=== PATIENT | female | born 1995 | race Caucasian/White ===

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

== ENCOUNTER → 2017-01-14 | Outpatient (CLI) | payer OTHER ==
[~2017-01-14] MED LIST changes: -AMPH1TAB58 PO; +ASPI325T45 PO; +FLUT0.15 NAE; +GUAN1TAB PO; +LITH1TAB PO; -MELA1TAB5 PO; +MELA3TAB PO; +MULT-506 PO; +OLAN10TA11 PO; +PRED20TA2 PO; -QUET200T2 PO; -QUET400T PO; -SERT-234 PO
== END | disposition home or self-care (01) ==
LOC: C.PATH 08:55
PROVIDERS: ATTEND Plastic Surgery
DX: R22.0 Localized swelling, mass and lump, head (principal)

== ENCOUNTER → 2017-03-10 | Outpatient (CLI) | payer OTHER ==
[~2017-03-10] MED LIST changes: -BENZ-89 PO; +CGN1 PO
[2017-03-10 12:20] LABS: BASO % 0.3 %; BASO ABS # 0.02 K/uL (0-0.2); COMPLETE YES; EOS % 2.7 %; HEMATOCRIT 41.6 % (37-47); IG% 0.1 %; LYMPH % 41.9 %; LYMPH ABS # 3.11 K/uL (1.2-3.4); MEAN CORPUSCULAR HEMOGLOBIN 27.7 pg (25-34); MEAN CORPUSCULAR HGB CONC 32.9 g/dl (32-36); MEAN PLATELET VOLUME 10.2 fL (7.4-10.4); PLATELET COUNT 332 K/uL (130-400); RED BLOOD COUNT 4.95 M/uL (4.2-5.4); WHITE BLOOD COUNT 7.43 K/uL (4.8-10.8)
[2017-03-10 12:58] LABS: ESTIMATED AVERAGE GLUCOSE 94 mg/dl
[2017-03-10 13:04] LABS: ALT/SGPT 34 U/L (12-78); AST/SGOT 20 U/L (15-37); BLOOD UREA NITROGEN 10 mg/dl (7-18); BUN/CREATININE RATIO 15.2 (10-20); CALCIUM 9.7 mg/dl (8.5-10.1); CARBON DIOXIDE 24 mmol/L (21-32); CHLORIDE 108 mmol/L (98-107); CREATININE 0.68 mg/dl (0.60-1.20); GLUCOSE 80 mg/dl (70-99); HDL CHOLESTEROL 65 mg/dl; SODIUM 140 mmol/L (136-145)
[2017-03-10 13:13] LABS: ALB/GLOB RATIO 0.9 (0.9-2); ALKALINE PHOSPHATASE 177 U/L (45-117); CHOLESTEROL 157 mg/dl (0-200); CHOLESTEROL/HDL RATIO 2.4; LDL CHOLESTEROL CALCULATED 83 mg/dl; TRIGLYCERIDES 44 mg/dl (0-150); VERY LOW DENSITY LIPOPROT CALC 9 mg/dl
[2017-03-10 13:24] LABS: HA1C FLAG Peak Unknown (Normal)
--- NOTE | 2017-03-15 10:54 | CODING QUERY MEDICAL NECESSITY ---
SUPPORTING DIAGNOSIS NEEDED A supporting diagnosis is required for the test/procedure performed on this patient in order for us to be reimbursed by the patient's insurance. Please provide a supporting diagnosis for the following test/procedure listed below next to the test name along with your signature. *If there is no additional diagnosis for this patient that would support the following test/procedure please document that below next to the test/procedure. Test(s)/Procedure(s) that require a supporting diagnosis: * HEMOGLOBIN A1C DIAGNOSIS: Provider Signature: Date: Thank you Sandie Martin [employer] Information [employer] Once completed, please kindly fax back to [phone] For questions please call [phone]
== END | disposition home or self-care (01) ==
LOC: C.LAB1850 11:23
PROVIDERS: ATTEND Physician Assistant
DX: Z51.81 Encounter for therapeutic drug level monitoring (principal); Z79.899 Other long term (current) drug therapy

== ENCOUNTER 2017-04-11 10:58 | Emergency (ER) | payer BC, OTHER ==
[~2017-04-11] VITALS: Ht 157.5 cm; Wt 84.3 kg
[~2017-04-11 10:58] MED LIST changes: -ASPI325T45 PO; -PRED20TA2 PO
[2017-04-11 11:04] VITALS: TEMP 36.7; Ht 157.5 cm; Wt 84.3 kg
[2017-04-11] MEDS ORDERED: GUAN1TAB PO (11:19)
[2017-04-11] MEDS ORDERED: ASPI325T45 PO (11:19)
[2017-04-11] MEDS ORDERED: DiphenhydrAMINE HCL 50 MG/ML VIAL IM STA (11:22)
[2017-04-11] MEDS ORDERED: PRED20TA2 PO (11:40)
--- NOTE | 2017-04-11 11:43 | EMERGENCY ROOM VISIT NOTE ---
ED Visit Note First contact with patient: 11:11 CHIEF COMPLAINT: Rash HISTORY OF PRESENT ILLNESS: This 22-year-old female patient presents to the emergency department ambulatory, with her father, complaining of a rash on bilateral arms, legs, back, neck, which started approximately one week ago. The patient states 1 week ago, she thought she had received bug bites on the back of both of her arms. The patient states the rash and itchiness did improve after a few days, however returned last night and seemed to be worse. The patient reports worsening hives, worse in her upper extremities, but also present on her lower extremities and torso. The patient denies fever, chills, nausea, trouble breathing, chest pain, or loss of appetite. They deny any URI symptoms. The patient has tried no medications or creams. The patient states the rash is very itchy and rates the discomfort as 5/10. No change in food, soap, detergents, or other environmental factors. No new medications, but the patient states she did recently increase the dose of her Tenex from 0.5 mg to 1 mg approximately 2 weeks ago. No weakness or numbness. REVIEW OF SYSTEMS: A 6 system review of systems was completed with positives and pertinent negatives listed in the HPI. ALLERGIES: Codeine, haloperidol, lithium, but has a limp, lamotrigine, risperidone, aripiprazole MEDICATIONS: Aspirin, Cogentin, Flonase, Tenex, Lactaid, lithium carbonate, melatonin, multivitamin, Zyprexa PMH: Seasonal allergies, bipolar disorder SOCIAL HISTORY: The patient lives locally with family. 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 She denies drug, alcohol, tobacco use. PHYSICAL EXAM: Vital Signs: Reviewed Nurse's notes, vital signs stable. GENERAL: This is a 22-year-old female, in no acute distress, well-developed, well-nourished. SKIN: Urticaria noted on bilateral upper extremities, lower extremities, the lower part of the patient's back, and mildly on the neck. Capillary refill less than 2 seconds. HEAD: Normocephalic atraumatic. EARS: External auditory canals clear, tympanic membranes pearly coffey without erythema or effusion bilaterally. EYES: Pupils equal round and reactive to light and accommodation. Conjunctivae without injection, sclerae without icterus. Extraocular movements intact. NOSE: Patent, turbinates without inflammation or discharge. No sinus tenderness. MOUTH: Mucous membranes moist. Tonsils are not enlarged. Pharynx without erythema or exudate. Uvula midline. Airway patent. Tongue does not deviate. NECK: Supple without nuchal rigidity. No lymphadenopathy. No thyromegaly. Cervical spine is nontender. No JVD. HEART: RRR. No murmurs, gallops, rubs. Normal S1, S2 without S3 or S4. LUNGS: CTA bilaterally. No rhonchi, wheezing, or rales on auscultation. EMERGENCY DEPARTMENT COURSE: Patient was seen and evaluated as above. She was given a dose of 50 mg Benadryl IM. The patient did note minimal improvement in her itchiness. I discussed discharge instructions with patient and her father at bedside. They are in agreement with treatment plan at this time. Pt. was discharged home in good condition. DIFFERENTIAL DIAGNOSIS: Urticaria due to medication or environmental factors, allergic reaction, anaphylaxis, dermatitis, vasculitis, and others. DIAGNOSIS: Urticaria DISCHARGE INSTRUCTIONS: You have been prescribed Prednisone. This is a steroid which will help decrease your inflammation, redness, and itch. Take this medicine as prescribed. Take the ENTIRE 6 day course. It is best to take steroids early in the morning as PM dosing can affect your sleeping patterns. Use Benadryl OTC to help with itchiness, redness, and to block the histamine reaction. Take 25-50 mg every 4-6 hours until urticaria improves. Consider taking ranitidine, or Zantac, as directed, in addition to these other medications. You can get this [id number]. This will also help to block the histamine reaction related to the urticaria. Please follow up in 1-2 days with your PCP for further evaluation and management. You may need a referral to an sheet metal shop foreman for testing related to urticaria, as we have not been able to identify any obvious causes. You should also follow up with your prescriber for Tenax. It is possible that your increase of dose could have precipitated the reaction. Return to the emergency department for worsening symptoms, including itchiness, redness, difficulty breathing, chest pain, facial or lip swelling, or hives on the face. Problem List Medical Problems: (1) ADHD (attention deficit hyperactivity disorder) Status: Chronic (2) Hemangioma Status: Chronic (3) OCD (obsessive compulsive disorder) Status: Chronic (4) Paranoid schizophrenia Status: Chronic Current/Historical Medications Scheduled Benztropine Mesylate (Cogentin), 1 MG PO BID Fluticasone Propionate (Nasal) (Flonase Allergy Relief), 2 SPRAYS LAUREN QPM Guanfacine Hcl (Tenex), 0.5 MG PO BID Guanfacine Hcl (Tenex), 1 MG PO DAILY Lactase (Lactaid), 3,000 UNITS PO TID [place] Carbonate Er (Lithobid Ext Rel), 900 MG PO QPM Multivitamin (Multivitamin), 1 TAB PO DAILY Olanzapine (Zyprexa), 10 MG PO QPM Prednisone (Prednisone Tab), 0 PO DAILY Scheduled PRN Aspirin (Aspirin), 325 MG PO UD PRN for Pain Melatonin (Melatonin), 3 MG PO HS PRN for Sleep Allergies Coded Allergies: Risperidone (Unverified Allergy, Severe, TONGUE GOES BACK HER THROAT, 04/11) Haloperidol (Unverified Allergy, Intermediate, LOCK JAW, 04/11/17) Lamotrigine (Unverified Allergy, Intermediate, HIVES, 04/11/17) Aripiprazole (Unverified Allergy, Mild, TONGUE SWELLS, 04/11/17) WORKS OK WITH COGENTIN Codeine (Unverified Allergy, Mild, VOMITTING, 04/11/17) Midazolam (Unverified Allergy, Mild, VOMITTING, 04/11/17) Vital Signs Date Time Temp Pulse Resp B/P (MAP) Pulse Ox O2 Delivery O2 Flow Rate FiO2 04/11/17 12:08 94 18 125/69 98 04/11/17 11:04 36.7 85 17 107/64 97 Room Air Medications Administered Medications (Trade) Dose Ordered Sig/Lissett Route Start Time Stop Time Status Last Admin Dose Admin Diphenhydramine HCl (Benadryl Inj) 50 mg NOW STAT IM 04/11/17 11:22 04/11/17 11:27 DC 04/11/17 11:46 50 MG Departure Information Impression Primary Impression: Urticaria Dispostion Home / Self-Care Condition GOOD Prescriptions Prednisone (Prednisone Tab) 20 Mg Tab 0 PO DAILY, #9 TAB 2 TABS DAILY FOR 3 DAYS, THEN 1 TAB DAILY FOR 3 DAYS. Prov: Julienne Dominguez, NIMESH 04/11/17 Referrals Jenae Fajardo M.D. (PCP) Patient Instructions ED Urticaria, [facility] Additional Instructions You have been prescribed Prednisone. This is a steroid which will help decrease your inflammation, redness, and itch. Take this medicine as prescribed. Take the ENTIRE 6 day course. It is best to take steroids early in the morning as PM dosing can affect your sleeping patterns. Use Benadryl OTC to help with itchiness, redness, and to block the histamine reaction. Take 25-50 mg every 4-6 hours until urticaria improves. Consider taking ranitidine, or Zantac, as directed, in addition to these other medications. You can get this [id number]. This will also help to block the histamine reaction related to the urticaria. You may use OTC calamine lotion or other anti-itch cream/spray to help with itchiness. Please follow up in 1-2 days with your PCP for further evaluation and management. You may need a referral to an sheet metal shop foreman for testing related to urticaria, as we have not been able to identify any obvious causes. You should also follow up with your prescriber for Tenax. It is possible that your increase of dose could have precipitated the reaction. Return to the emergency department for worsening symptoms, including itchiness, redness, difficulty breathing, chest pain, facial or lip swelling, or hives on the face.
[2017-04-11 12:08] VITALS: BP 125/69; PULSE 94; O2SAT 98
== END 2017-04-11 12:10 | disposition home or self-care (01) ==
LOC: C.EDB 10:59 → C.EDD 12:10
DX: L50.9 Urticaria, unspecified (principal); F31.9 Bipolar disorder, unspecified; J30.2 Other seasonal allergic rhinitis; F90.9 Attention-deficit hyperactivity disorder, unspecified type; D18.00 Hemangioma unspecified site; F42.9 Obsessive-compulsive disorder, unspecified; F20.0 Paranoid schizophrenia

== ENCOUNTER → 2017-08-17 | Outpatient (CLI) | payer BC, OTHER ==
[~2017-08-17] MED LIST changes: +ASPECOTC PO; +BENZ-89 PO; -CGN1 PO; +PRED20TA2 PO
== END | disposition home or self-care (01) ==
LOC: C.PATHSPEC 15:55
PROVIDERS: ATTEND Dentist Oral and Maxillofacial Pathology
DX: D17.0 Benign lipomatous neoplasm of skin and subcutaneous tissue of head, face and neck (principal)

== ENCOUNTER 2023-06-07 13:20 | Inpatient (IN) ==
[2023-06-07 13:29] VITALS: O2SAT 98
--- NOTE | 2023-06-07 13:29 | ED Triage Note ---
Date of Service June 07, 2023 History of Present Illness This patient was briefly evaluated while in triage. An abbreviated physical exam was performed. Patient prefers the name Jim. This patient is a 28-year-old patient who presents to the ED for evaluation of suicidal and homicidal thoughts. Here with mother. No plan at the present time. Symptoms ongoing for 1.5 weeks. Hears voices as well. On depo. No menstrual cycle in years. Physical Exam GENERAL: 28 year old patient. In no acute distress. SKIN: No lesions or rashes. HEART: Regular rate and rhythm. LUNGS: Clear to auscultation. NEURO: Alert and oriented. No deficits. MUSCULOSKELETAL: No deformities to inspection of the extremities. Initial orders for labs and / or imaging were placed
--- NOTE | 2023-06-07 13:56 | Emergency Department Note ---
Impression & Plan Schizophrenia admit ED Provider Note Diagnosis: Schizophrenia Disposition: Admission CHIEF COMPLAINT: HPI: Patient is a 28-year-old with history of schizophrenia presenting with hearing voices and suicidal homicidal. Patient states that they have been hearing voic es and they have been telling them to kill their mother and father and if they go through with that the voices will stop. Patient has been feeling suicidal due to the thoughts of wanting to hurt mother and father. Patient has not acted on any of these thoughts. PAST MEDICAL HISTORY: See Below PAST SURGICAL HISTORY: See Below SOCIAL HISTORY: See Below HOME MEDICATIONS: See Below ALLERGIES: See Below VITALS: See Below PHYSICAL EXAMINATION: GENERAL: Well appearing, well nourished, NAD, non-toxic. EYE EXAM: Normal conjunctiva. OROPHARYNX: Moist mucus membranes. Grossly normal dentition. NECK: Supple, LUNGS: Clear to auscultation. Normal chest wall mechanics. HEART: NSR ABDOMEN: Abdomen soft, non-tender, normo-active bowel sounds, no masses, no rebound or guarding BACK: No CVA TTP. SKIN: No rashes and no bruising. UPPER EXTREMITIES: Upper extremities are grossly normal LOWER EXTREMITIES: Grossly normal, no edema. NEURO EXAM: A&O x3,, normal speech, moves all 4 extremities PSYCH: Cooperative, auditory hallucinations, suicidal and homicidal MEDICAL DECISION MAKING: Reviewed external documents: Reviewed family practice note 12/19/2021 History obtained from: Patient, patient's mother ER Course: Patient with history of schizophrenia presenting with complaint of homicidal suicidal ideations. Patient states they are hearing voices that are telling him to kill their mother and father and that the voices will go away if they perform this act. Patient states that they are feeling suicidal due to having these homicidal thoughts. Patient does not have a plan for either the homicidal or suicidal ideations. Patient is medically cleared for inpatient psychiatric treatment. Labs (independently interpreted) are significant for: No electrolyte abnormalities lithium therapeutic Consultants: Mental health counselor Patient admitted to psychiatric team Dr. Null Triage Nursing notes reviewed and agree them. Vital Signs: reviewed and remarkable for: no significant abnormalities Past Med/Surg History Medical History ADHD Anxiety Bruise of breast alcohol spectrum disorder GERD (gastroesophageal reflux disease) History of reactive attachment disorder OCD (obsessive compulsive disorder) Paranoid schizophrenia Surgical History History of eye surgery History of hemangioma excision Hx of wisdom tooth extraction Status post excision of lipoma Family History Other Family history not known due to adoption Social History Smoking Status: Never smoker Second Hand Exposure: Yes (roommates smoke); Do You Dip or Chew Tobacco: No; Hx Alcohol Use: No Hx Substance Use: No Preferred Language: [place] Communication Ability: Effective 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: No Beliefs That Will Affect Care: None marital status: Single Current Living Situation: Other Current Living Situation Comment: has 2 roommates; [facility] current occupational status: employed current occupation: [employer] Feels Safe at Home: Yes Childhood Exposure to Second-Hand Smoke: No Physical Activity Frequency: 3-4 Times per Week Seatbelt Use: always Gender Identity: Transgender Male Assistive Devices: Glasses Allergies Allergies Allergy/AdvReac Type Severity Reaction Status Date / Time risperidone Allergy Severe TONGUE Verified 08/18/22 16:56 GOES BACK HER THROAT haloperidol Allergy Intermediate LOCK JAW Verified 08/18/22 16:56 lamotrigine Allergy Intermediate HIVES Verified 08/18/22 16:56 aripiprazole Allergy Mild TONGUE Verified 08/18/22 16:56 SWELLS codeine Allergy Mild VOMITTING Verified 08/18/22 16:56 midazolam Allergy Mild VOMITTING Verified 08/18/22 16:56 Home Meds Home Medications Medication Instructions Recorded Confirmed benztropine 1 mg tablet 1 mg PO BID 10/10/18 08/18/22 fluticasone propionate 50 1 spray intranasal HS 10/10/18 08/18/22 mcg/actuation nasal spray,suspension (Flonase Allergy Relief) guanfacine 2 mg tablet 1 mg PO BID 10/10/18 08/18/22 lactase 3,000 unit tablet (Lactaid) 3,000 unit PO AC PRN Lactose 10/10/18 08/18/22 Intolerance multivitamin (Tab-A-Tomasz tablet) 1 tab PO QAM 10/10/18 08/18/22 pimozide 1 mg tablet 1 mg PO BID 03/25/20 08/18/22 clomipramine 25 mg capsule 25 mg PO PM 10/15/20 08/18/22 clomipramine 75 mg capsule 75 mg PO PM 10/15/20 04/16/22 lithium carbonate 450 mg 900 mg PO BID 04/24/21 08/18/22 tablet,extended release olanzapine 15 mg-samidorphan 10 mg 1 tab PO DAILY 12/18/21 08/18/22 tablet (Lybalvi) testosterone transdermal 1XD 12/18/21 08/18/22 guanfacine 1 mg tablet 1 mg BID 06/07/23 06/07/23 olanzapine 20 mg-samidorphan 10 mg 1 tab PO HS 06/07/23 06/07/23 tablet (Lybalvi) Previous Rx's Medication Instructions Recorded vitamins A and D 1 cap PO DAILY #100 caps 04/21/21 clindamycin phosphate 1 % topical 1 applic topical HS #30 grams 11/04/21 gel lansoprazole 30 mg capsule,delayed See Rx Instructions .Route 05/06/23 release .COMPLEX #60 caps medroxyprogesterone 150 mg/mL 150 mg IM .COMPLEX #1 mL 05/10/23 intramuscular syringe Results & Data (ED) Vital Signs Vital Signs - 24 hr 06/07/23 13:27 06/07/23 15:52 06/07/23 17:00 Temperature 36.6 C Temperature Source Temporal Artery Scan Pulse Rate 102 H Respiratory Rate 20 16 19 Respiratory Effort / Characteristics Non-Labored Respiratory Depth Normal Blood Pressure 146/96 H Blood Pressure Mean 112 Pulse Oximetry 98 Oxygen Delivery Method Room Air Sepsis Recent Fever Within 48 Hours No Sepsis New/Unexplained Change in Mental Status No Sepsis Action Taken by Nursing No Action Required Laboratory Data 06/07/23 13:55 06/07/23 13:55 Lab Results 06/07/23 06/07/23 06/07/23 Range/Units 13:31 13:31 13:55 WBC 13.11 H (4.8-10.8) K/ul RBC 4.56 (4.20-5.40) M/uL Hgb 12.7 (12.0-16.0) g/dl Hct 38.7 (37.0-47.0) % MCV 84.9 (80.0-100.0) fL MCH 27.9 (25.0-34.0) pg MCHC 32.8 (32.0-36.0) g/dL RDW Std Deviation 44.0 (36.4-46.3) fL RDW Coeff of Padmini 14.3 (11.5-14.5) % Plt Count 514 H (130-400) K/uL MPV 10.2 (9.4-12.4) fL Immature Gran % (Auto) 0.3 % Neut % (Auto) 54.0 % Lymph % (Auto) 39.1 % Walker % (Auto) 3.8 % Eos % (Auto) 2.4 % Baso % (Auto) 0.4 % Neut # (Auto) 7.08 H (1.40-6.50) K/uL Lymph # (Auto) 5.13 H (1.20-3.40) K/uL Walker # (Auto) 0.50 (0.11-0.59) K/uL Eos # (Auto) 0.31 (0.00-0.50) K/uL Baso # (Auto) 0.05 (0.00-0.20) K/uL Immature Gran # (Auto) 0.04 (0.01-0.20) K/uL Sodium (136-145) mmol/L Potassium (3.5-5.1) mmol/L Chloride (98-107) mmol/L Carbon Dioxide (21-32) mmol/L Anion Gap (3-11) BUN (6-23) mg/dl Creatinine (0.6-1.2) mg/dl Est Cr Clr Drug Dosing ml/min Est GFR ( Amer) ml/min Est GFR (Non-Af Amer) ml/min BUN/Creatinine Ratio (10-20) Glucose (70-99(Fasting)) mg/dl Calcium (8.6-10.3) mg/dl Total Bilirubin (0.2-1.0) mg/dl AST (13-39) U/L ALT (7-52) U/L Alkaline Phosphatase (34-104) U/L Total Protein (6.0-8.3) gm/dl Albumin (3.4-5.0) gm/dl Globulin (2.5-4.0) gm/dl Albumin/Globulin Ratio (0.9-2) TSH (0.300-4.500) uIu/ml Free T4 (0.61-1.60) ng/dl HCG, Qual (Negative) Urine Color Yellow Urine Appearance Clear (Clear) Urine pH 7.5 (4.5-7.5) Ur Specific [place] 1.004 (1.000-1.030) Urine Protein Negative (Negative) Urine Glucose (UA) Negative (Negative) Urine Ketones Negative (Negative) Urine Blood Negative (Negative) Urine Nitrite Negative (Negative) Urine Bilirubin Negative (Negative) Urine Urobilinogen Negative (Negative) Ur Leukocyte Esterase 1+ H (Negative) Urine WBC (Auto) 0 (0-5) /hpf Urine RBC (Auto) 0-4 (0-4) /hpf U Hyaline Cast (Auto) 0 (0-5) /lpf U Epithel Cells (Auto) 5-10 H (0-5) /lpf Urine Bacteria (Auto) Negative (Negative) Salicylates (3.0-30) mg/dl Urine Opiates Screen Neg (Neg) Ur Methadone, Qual Neg (Neg) Acetaminophen (10-30) ug/ml Urine Barbiturates Neg (Neg) Ur Phencyclidine (PCP) Neg (Neg) U Amphetamin/Meth Scrn Neg (Neg) MDMA (Ecstasy) Screen Neg (Neg) U Benzodiazepines Scrn Neg (Neg) [place] (0.6-1.2) mmol/L Ur Cocaine Metabolite Neg (Neg) U Marijuana (THC) Screen Neg (Neg) Ethyl Alcohol mg/dL (<10.0) mg/dl SARS-CoV-2, RNA, NAAT (NEGATIVE) 06/07/23 06/07/23 06/07/23 Range/Units 13:55 13:55 13:55 WBC (4.8-10.8) K/ul RBC (4.20-5.40) M/uL Hgb (12.0-16.0) g/dl Hct (37.0-47.0) % MCV (80.0-100.0) fL MCH (25.0-34.0) pg MCHC (32.0-36.0) g/dL RDW Std Deviation (36.4-46.3) fL RDW Coeff of Padmini (11.5-14.5) % Plt Count (130-400) K/uL MPV (9.4-12.4) fL Immature Gran % (Auto) % Neut % (Auto) % Lymph % (Auto) % Walker % (Auto) % Eos % (Auto) % Baso % (Auto) % Neut # (Auto) (1.40-6.50) K/uL Lymph # (Auto) (1.20-3.40) K/uL [place] # (Auto) (0.11-0.59) K/uL Eos # (Auto) (0.00-0.50) K/uL Baso # (Auto) (0.00-0.20) K/uL Immature Gran # (Auto) (0.01-0.20) K/uL Sodium 139 (136-145) mmol/L Potassium 3.8 (3.5-5.1) mmol/L Chloride 110 H (98-107) mmol/L Carbon Dioxide 22 (21-32) mmol/L Anion Gap 7 (3-11) BUN 9 (6-23) mg/dl Creatinine 0.90 (0.6-1.2) mg/dl Est Cr Clr Drug Dosing 114.4 ml/min Est GFR ( Amer) 102.3 ml/min Est GFR (Non-Af Amer) 88.2 ml/min BUN/Creatinine Ratio 10.0 (10-20) Glucose 102 H (70-99(Fasting)) mg/dl Calcium 9.7 (8.6-10.3) mg/dl Total Bilirubin 0.2 (0.2-1.0) mg/dl AST 37 (13-39) U/L ALT 73 H (7-52) U/L Alkaline Phosphatase 154 H (34-104) U/L Total Protein 7.8 (6.0-8.3) gm/dl Albumin 4.5 (3.4-5.0) gm/dl Globulin 3.3 (2.5-4.0) gm/dl Albumin/Globulin Ratio 1.4 (0.9-2) TSH 5.379 H (0.300-4.500) uIu/ml Free T4 0.58 L (0.61-1.60) ng/dl HCG, Qual (Negative) Urine Color Urine Appearance (Clear) Urine pH (4.5-7.5) Ur Specific [place] (1.000-1.030) Urine Protein (Negative) Urine Glucose (UA) (Negative) Urine Ketones (Negative) Urine Blood (Negative) Urine Nitrite (Negative) Urine Bilirubin (Negative) Urine Urobilinogen (Negative) Ur Leukocyte Esterase (Negative) Urine WBC (Auto) (0-5) /hpf Urine RBC (Auto) (0-4) /hpf U Hyaline Cast (Auto) (0-5) /lpf U Epithel Cells (Auto) (0-5) /lpf Urine Bacteria (Auto) (Negative) Salicylates < 3.0 L (3.0-30) mg/dl Urine Opiates Screen (Neg) Ur Methadone, Qual (Neg) Acetaminophen < 3 L (10-30) ug/ml Urine Barbiturates (Neg) Ur Phencyclidine (PCP) (Neg) U Amphetamin/Meth Scrn (Neg) MDMA (Ecstasy) Screen (Neg) U Benzodiazepines Scrn (Neg) [place] 1.2 (0.6-1.2) mmol/L Ur Cocaine Metabolite (Neg) U Marijuana (THC) Screen (Neg) Ethyl Alcohol mg/dL < 10.0 (<10.0) mg/dl SARS-CoV-2, RNA, NAAT (NEGATIVE) 06/07/23 06/07/23 Range/Units 13:55 Unknown WBC (4.8-10.8) K/ul RBC (4.20-5.40) M/uL Hgb (12.0-16.0) g/dl Hct (37.0-47.0) % MCV (80.0-100.0) fL MCH (25.0-34.0) pg MCHC (32.0-36.0) g/dL RDW Std Deviation (36.4-46.3) fL RDW Coeff of Padmini (11.5-14.5) % Plt Count (130-400) K/uL MPV (9.4-12.4) fL Immature Gran % (Auto) % Neut % (Auto) % Lymph % (Auto) % Walker % (Auto) % Eos % (Auto) % Baso % (Auto) % Neut # (Auto) (1.40-6.50) K/uL Lymph # (Auto) (1.20-3.40) K/uL [place] # (Auto) (0.11-0.59) K/uL Eos # (Auto) (0.00-0.50) K/uL Baso # (Auto) (0.00-0.20) K/uL Immature Gran # (Auto) (0.01-0.20) K/uL Sodium (136-145) mmol/L Potassium (3.5-5.1) mmol/L Chloride (98-107) mmol/L Carbon Dioxide (21-32) mmol/L Anion Gap (3-11) BUN (6-23) mg/dl Creatinine (0.6-1.2) mg/dl Est Cr Clr Drug Dosing ml/min Est GFR ( Amer) ml/min Est GFR (Non-Af Amer) ml/min BUN/Creatinine Ratio (10-20) Glucose (70-99(Fasting)) mg/dl Calcium (8.6-10.3) mg/dl Total Bilirubin (0.2-1.0) mg/dl AST (13-39) U/L ALT (7-52) U/L Alkaline Phosphatase (34-104) U/L Total Protein (6.0-8.3) gm/dl Albumin (3.4-5.0) gm/dl Globulin (2.5-4.0) gm/dl Albumin/Globulin Ratio (0.9-2) TSH (0.300-4.500) uIu/ml Free T4 (0.61-1.60) ng/dl HCG, Qual Negative (Negative) Urine Color Urine Appearance (Clear) Urine pH (4.5-7.5) Ur Specific [place] (1.000-1.030) Urine Protein (Negative) Urine Glucose (UA) (Negative) Urine Ketones (Negative) Urine Blood (Negative) Urine Nitrite (Negative) Urine Bilirubin (Negative) Urine Urobilinogen (Negative) Ur Leukocyte Esterase (Negative) Urine WBC (Auto) (0-5) /hpf Urine RBC (Auto) (0-4) /hpf U Hyaline Cast (Auto) (0-5) /lpf U Epithel Cells (Auto) (0-5) /lpf Urine Bacteria (Auto) (Negative) Salicylates (3.0-30) mg/dl Urine Opiates Screen (Neg) Ur Methadone, Qual (Neg) Acetaminophen (10-30) ug/ml Urine Barbiturates (Neg) Ur Phencyclidine (PCP) (Neg) U Amphetamin/Meth Scrn (Neg) MDMA (Ecstasy) Screen (Neg) U Benzodiazepines Scrn (Neg) [place] (0.6-1.2) mmol/L Ur Cocaine Metabolite (Neg) U Marijuana (THC) Screen (Neg) Ethyl Alcohol mg/dL (<10.0) mg/dl SARS-CoV-2, RNA, NAAT NEGATIVE (NEGATIVE) Discharge Plan Visit Data Chief Complaint: Mental Health Evaluation Stated Complaint: SUICIDAL AND HOMOCIDAL THOUGHTS ED Provider: Anish Ontiveros Discharge Problem: Schizophrenia Forms Stand Alone Forms: [facility], Suicide Prevention Resources Prescriptions Prescriptions: No Action vitamins A and D Capsule 1 cap PO DAILY Qty: 100 3RF Rx Instructions: administer with a meal 10,000-400 unit oral capsule clindamycin phosphate 1 % gel 1 applic TOPICAL HS Qty: 30 2RF lansoprazole 30 mg capsule,delayed release(DR/EC) See Rx Instructions .ROUTE .COMPLEX Qty: 60 0RF Dose Instruction: take 1 capsule by mouth twice a day Rx Instructions: take 1 capsule by mouth twice a day clomipramine 75 mg capsule 75 mg PO PM clomipramine 25 mg capsule 25 mg PO PM Lybalvi 15-10 mg tablet 1 tab PO DAILY testosterone transdermal 1XD medroxyprogesterone 150 mg/mL syringe 150 mg IM .COMPLEX Qty: 1 0RF Rx Instructions: 150 mg IM : Inject 1 ml every [address] office[address] multivitamin [Tab-A-Tomasz] Tablet 1 tab PO QAM benztropine 1 mg Tablet 1 mg PO BID lactase [Lactaid] 3,000 unit Tablet 3,000 unit PO AC PRN (Reason: Lactose Intolerance) guanfacine 2 mg Tablet 1 mg PO BID fluticasone propionate [Flonase Allergy Relief] 50 mcg/actuation [place],Suspension 1 spray INTRANASAL HS pimozide 1 mg tablet 1 mg PO BID lithium carbonate 450 mg tablet extended release 900 mg PO BID guanfacine 1 mg tablet 1 mg BID Lybalvi 20-10 mg Tablet 1 tab PO HS Referrals Referrals: Thanh Dexter MD [Primary Care Provider] -
[2023-06-07 14:08] LABS: Appearance Urine Clear (Clear); Bilirubin Urine Negative (Negative); Blood Urine Negative (Negative); Color Urine Yellow; Glucose Urine UA Negative (Negative); Ketones Urine Negative (Negative); Leukocyte Esterase Urine 1+ (Negative); Nitrite Urine Negative (Negative); Protein Urine Negative (Negative); Specific Gravity Urine 1.004 (1.000-1.030); Urobilinogen Urine Negative (Negative); pH Urine 7.5 (4.5-7.5)
[2023-06-07 14:25] LABS: Amphetamines+Metham, Urine Neg (Neg); Barbiturates, Urine Neg (Neg); Benzodiazepine, Urine Neg (Neg); Cocaine, Urine Neg (Neg); MDMA (Ecstacy), Urine Neg (Neg); Methadone, Urine Neg (Neg); Opiate, Urine Neg (Neg); Phencyclidine, Urine Neg (Neg)
[2023-06-07 14:27] LABS: Hematocrit (blood only) 38.7 % (37.0-47.0); Hemoglobin 12.7 g/dl (12.0-16.0); Mean Corpuscular Hemoglobin 27.9 pg (25.0-34.0); Mean Corpuscular Hgb Conc 32.8 g/dL (32.0-36.0); Mean Corpuscular Volume 84.9 fL (80.0-100.0); Mean Platelet Volume 10.2 fL (9.4-12.4); Platelet Count 514 K/uL (130-400); RDW Coefficient of Variation 14.3 % (11.5-14.5); Red Blood Count 4.56 M/uL (4.20-5.40); White Blood Count 13.11 K/ul (4.8-10.8)
[2023-06-07 14:29] LABS: Bacteria Urine Automated Negative (Negative); Cast Urine Automated 0 /lpf (0-5); RBC Urine Automated 0-4 /hpf (0-4); WBC Urine Automated 0 /hpf (0-5)
[2023-06-07 14:48] LABS: Basophils # (auto) 0.05 K/uL (0.00-0.20); Basophils % (auto) 0.4 %; Eosinophils # (auto) 0.31 K/uL (0.00-0.50); Eosinophils % (auto) 2.4 %; Immature Granulocytes # (auto) 0.04 K/uL (0.01-0.20); Immature Granulocytes % (auto) 0.3 %; Lymphocytes # (auto) 5.13 K/uL (1.20-3.40); Lymphocytes % (auto) 39.1 %; Monocytes % (auto) 3.8 %; Neutrophils # (auto) 7.08 K/uL (1.40-6.50)
[2023-06-07 14:49] LABS: Albumin Globulin Ratio 1.4 (0.9-2); Albumin Level 4.5 gm/dl (3.4-5.0); Bilirubin,Total 0.2 mg/dl (0.2-1.0); Calcium 9.7 mg/dl (8.6-10.3); Creatinine Clr Calc Pharmacy 114.4 ml/min; Est GFR (African American) 102.3 ml/min; Est GFR (Non-African American) 88.2 ml/min; Globulin 3.3 gm/dl (2.5-4.0); Potassium 3.8 mmol/L (3.5-5.1); Total Protein 7.8 gm/dl (6.0-8.3)
[2023-06-07 14:50] LABS: Acetaminophen < 3 ug/ml (10-30); Lithium 1.2 mmol/L (0.6-1.2); Salicylate < 3.0 mg/dl (3.0-30)
[2023-06-07 14:52] LABS: Pregnancy Test, Serum Negative (Negative)
[2023-06-07 14:59] LABS: Thyroid Stimulating Hormone 5.379 uIu/ml (0.300-4.500)
[2023-06-07 15:34] LABS: T4 Free Thyroxine 0.58 ng/dl (0.61-1.60)
[2023-06-07] MEDS ORDERED: BISMUTH SUBSALICYLATE LIQD 236 ML PO PRN (17:07)
[2023-06-07] MEDS ORDERED: SODIUM CHLORIDE 0.65% NA SOLN 45 ML (OCEAN) PRN (17:07)
[2023-06-07] MEDS ORDERED: MAGNESIUM HYDROXIDE SUSP 30 ML UDC PO PRN (17:07)
[2023-06-07] MEDS ORDERED: ALUMINUM/MAGNESIUM SUSP 30 ML UDC PO PRN (17:07)
[2023-06-07] MEDS ORDERED: hydrOXYzine HCl 25 MG TAB PO PRN (17:07)
[2023-06-07] MEDS ORDERED: LACTASE 3000 UNIT TAB PO PRN (17:11)
[2023-06-07] MEDS ORDERED: CLOMIPRAMINE HCL 25 MG CAPSULE PO SCH (19:00)
[2023-06-07] MEDS: hydrOXYzine HCl 25 MG TAB PO PRN (19:01)
[2023-06-07] MEDS: LORazepam 1 MG TAB PO PRN (19:54)
[2023-06-07] MEDS: CLOMIPRAMINE 75 MG PO SCH (20:12)
[2023-06-07] MEDS: CLOMIPRAMINE HCL 25 MG CAPSULE PO SCH (20:13)
[2023-06-07] MEDS ORDERED: PANTOprazole 40 MG TAB PO SCH (21:00)
[2023-06-07] MEDS: guanFACINE HCL 1 MG TAB PO SCH (21:24)
[2023-06-07] MEDS: LANSOPRAZOLE 30 MG SOLTAB PO SCH (21:24)
[2023-06-07] MEDS: BENZTROPINE MESYLATE 1 MG TAB PO SCH (21:24)
[2023-06-07] MEDS: CLINDAMYCIN TOP SCH (21:24)
[2023-06-07] MEDS: LITHIUM CARBONATE 450 MG TABCR PO SCH (21:24)
[2023-06-07] MEDS: BENZOYL PEROXIDE TOP SCH (21:24)
[2023-06-07] MEDS: PIMOZIDE 1 MG PO SCH (21:25)
[2023-06-07] MEDS: FLUTICASONE PROPIONATE NA SPR 16 GM BTL SCH (21:26)
[2023-06-07] MEDS: OLANZAPINE SAMIDORPHAN PO SCH (21:27)
[2023-06-07] MEDS ORDERED: OLANZapine 20 MG TABLET PO SCH (22:00)
[2023-06-07] MEDS ORDERED: OLANZapine 10 MG TAB PO SCH (22:00)
--- NOTE | 2023-06-08 07:03 | History & Physical ---
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 MNPR as impulsive, reports auditory command [place], limited social skills Collateral from family will prove helpful. Records from [facility] in past year reviewed. Overall, I spent a total of 79 minutes with this case, including review of chart/records, direct evaluation of the patient, counseling the patient, coordination with nursing, risk assessment, and documentation. (1) Schizophrenia: (2) Obsessive compulsive disorder: (3) ADHD (attention deficit hyperactivity disorder): Plan The patient was admitted to the [facility] ([facility] mental [facility] unit) on q15 min checks (behavioral with suicide precautions) for safety. The patient will participate in group, recreational, and milieu therapies and will be offered additional individual and family sessions as clinically appropriate. Patient assents to continue current medications pending full review of risks/b enefits with guardian. Inventory Assets Strengths: verbal, agreeable to services Needs: improve coping, redirect own attention Suicide Risk Level Suicide Risk Level: Low (q15 min observation checks) (patient is on homicide checks rather than straight observational) Risk Factors Assessment Male: Yes : Yes Mental Health Diagnoses: Yes Previous Attempt: Yes Previous Psychiatric Hospitalization: Yes Protective Factors Assessment : No Stable Relationships: Yes Supportive Family: Yes Good Rapport with Provider: Yes Psychiatric History Identifying Data Jim (Lori HERNANDEZ) is a 28-year-old trans male who identifies as Jim (he/him) who currently lives in [place] with adoptive parents, has a history of developmental delay, schizophrenia, and OCD, and was admitted on 06/07/23 17:07 on a 201 voluntary commitment for auditory command hallucinations. Chief Complaint "I got worried when the voices told me they'd go away if I hurt them." History of Present Illness as per ED CM: Patient admits he has baseline suicidal ideations, however, last , the voices in patient's head became command in nature tell him to kill his parents, stating "if you just kill them the voices will go away." Patient has had previous psychiatric admissions and suicide attempt of jumping out of a window. Patient's Mom contacted psychiatrist in an attempt to avoid admission and it was suggested that patient increase his Lybalvi. Patient's Mom reports patient is accustomed to quick titrating and was hopeful this would help, but it did not; hence why the patient is in the ED. Patient is generally compliant with medication, however, missed two morning doses about two weeks ago and has caused him to feel off. Patient's Mom reports he is diagnosed with Schizophrenia and OCD. Patient reports when he begins having these negative thoughts, he puts on his headphones. Patient explains that "my thoughts are tied to my feelings and I act on those." Patient reports that it usually started with increase anxiety, turns to negative thoughts and the voices begin. Patient's parents have guardianship of patient, since June 29, 2016, paperwork is on chart. Patient reports that any time they are not engaged in an activity they have "hallcinations", this creates anxiety as don't want to act on the impulses. Has been in care for OCD/psych sx since 5th grade, required hospitalization for psychotic symptoms while on stimulant. They are rather concrete in history but do note reasonable relationship with roommates and parents. They attend a ctivities at [employer] and work at [employer]. Past Psychiatric History Previous Psych History: RAD (head banger), ADHD Current Psychiatric Diagnosis: Schizophrenia, OCD Outpatient Services: [facility] Previous Psych Admissions: 2017 [facility]; hx of multiple inpatient stays as a child (?12) with RTF X2 prior to placement at [facility] History of Previous Suicide Attempt: Yes Describe Attempts in the Past: try jump out of window age 20. Past Medication Trials: antidepressants: Zoloft, Prozac,Luvox, sleep: trazodone antipsychotics: Seroquel, Risperdal, Zyprexa, Geodon, Abilify, Haldol, Thorazine mood stabilizers: Barlow, lamictal aDHD: Adderall, Concerta, Strattera, Tenex other: Benztropine anxiety: Klonopin, Allergies Allergy/AdvReac Type Severity Reaction Status Date / Time risperidone Allergy Severe TONGUE Verified 08/18/22 16:56 GOES BACK HER THROAT haloperidol Allergy Intermediate LOCK JAW Verified 08/18/22 16:56 lamotrigine Allergy Intermediate HIVES Verified 08/18/22 16:56 aripiprazole Allergy Mild TONGUE Verified 08/18/22 16:56 SWELLS codeine Allergy Mild VOMITTING Verified 08/18/22 16:56 midazolam Allergy Mild VOMITTING Verified 08/18/22 16:56 Home Medications Medication Instructions Recorded Confirmed Type benztropine 1 mg tablet 1 mg PO BID 10/10/18 06/08/23 History fluticasone propionate 50 1 spray intranasal HS 10/10/18 06/07/23 History mcg/actuation nasal spray,suspension (Flonase Allergy Relief) lactase 3,000 unit tablet (Lactaid) 3,000 unit PO AC PRN Lactose 10/10/18 06/07/23 History Intolerance multivitamin (Tab-A-Tomasz tablet) 1 tab PO QAM 10/10/18 06/07/23 History pimozide 1 mg tablet 1 mg PO BID 03/25/20 06/07/23 History clomipramine 25 mg capsule See Rx Instructions .Route .COMPLEX 10/15/20 06/08/23 History clomipramine 75 mg capsule See Rx Instructions .Route .COMPLEX 10/15/20 06/08/23 History lithium carbonate 450 mg 900 mg PO BID 04/24/21 06/08/23 History tablet,extended release medroxyprogesterone 150 mg/mL 150 mg IM .COMPLEX #1 mL 05/10/23 06/07/23 Rx intramuscular syringe clindamycin 1.2 % (1 % 1 ea topical DAILY 06/07/23 06/07/23 History base)-benzoyl peroxide 5 % topical gel (Neuac) guanfacine 1 mg tablet See Rx Instructions .Route .COMPLEX 06/07/23 06/08/23 History olanzapine 20 mg-samidorphan 10 mg 1 tab PO HS 06/07/23 06/07/23 History tablet (Lybalvi) testosterone 1.62 % topical DAILY 06/07/23 06/07/23 History Family History Family History of: Doesn't Know Family Mental Health History Comment: patient adopted Alcohol History Hx of Alcohol Use Over the Past 12 Months: No Smoking Use Have You Smoked or Used Tobacco Products in the Last 30 Days: No Smoking Status: Never smoker Substance History Hx of Prescription Med Misuse Over the Past 12 Months: No Hx of Over the Counter Med Misuse Over the Past 12 Months: No Hx of Inhalent Misuse Over the Past 12 Months: No Hx of Organic Substance Use Over the Past 12 Months: No Hx of Illegal Substances/Street Drug Use Over Past 12 Months: No Problems as a Result of Past Substance Use: None Identified Personal History Living Arrangements: long-term, [place] Childhood: adopted age 6 from orphanage ([place]), hx of extensive facial surgeries as a child s/p hemangioma resection Highest Grade Completed: High School Graduate Marital Status: Single Number Of Children: 0 Beliefs That Will Affect Care: None Current Legal Problems: No Hx Legal Problems: No Hx Traumatic Life Events: Yes (repeated sugeries, surrendered 8 days old) Patient History Medical History ADHD Anxiety Bruise of breast alcohol spectrum disorder GERD (gastroesophageal reflux disease) History of reactive attachment disorder OCD (obsessive compulsive disorder) Paranoid schizophrenia Surgical History History of eye surgery left wall eyed syndrome History of hemangioma excision p41--ybdyy side of face Hx of wisdom tooth extraction Status post excision of lipoma Family History Other Family history not known due to adoption Social History Smoking Status: Never smoker Second Hand Exposure: Yes (roommates smoke); Do You Dip or Chew Tobacco: No; Hx Alcohol Use: No Hx Substance Use: No Preferred Language: Tuvaluan Communication Ability: Effective Equipment Cleaner Required: No Beliefs That Will Affect Care: None marital status: Single Current Living Situation: Other Current Living Situation Comment: has 2 roommates; [employer] house current occupational status: employed current occupation: [employer] Feels Safe at Home: Yes Childhood Exposure to Second-Hand Smoke: No Physical Activity Frequency: 3-4 Times per Week Seatbelt Use: always Gender Identity: Transgender Male Assistive Devices: Glasses Review of Systems Review of Systems: All systems reviewed & are unremarkable except as noted in HPI & below Physical Exam Psychiatric: Orientation: alert and oriented x 3 Apperance: appropriately dressed and appropriately groomed Eye Contact: good eye contact Motor Behavior: no abnormal motor movements Speech: + abnormal rate/rhythm/volume of speech (hyperverbal) Affect: euthymic affect Mood: + anxious mood Thought Process: + perseveration Thought Content: reality based without delusions Suicidal Thoughts: denies suicidal thoughts Homicidal Thoughts: denies homicidal thoughts Hallucinations: + auditory hallucinations (patient reports but does not appear to be responding to internal stimuli); no visual hallucinations Cognition: language grossly intact; + attention not intact Estimated Intelligence: + below average estimated intelligence Insight: + limited insight Judgment: + limited judgement Vital Signs (Past 24 Hours): Last Vital Signs Temp 36.8 C 06/08/23 06:47 Pulse 103 H 06/08/23 06:47 Resp 18 06/08/23 06:47 BP 130/89 06/08/23 06:47 Pulse Ox 98 06/07/23 19:39 O2 Del Method Room Air 06/07/23 19:39 Exam Statement: A physical exam was performed in the ED by Dr. Ontiveros for the purposes of medical clearance. I accept that physical as correct and adequate for the purposes of the inpatient physical exam. Results & Data ([facility]) Laboratory Results Laboratory Results - last 24 hr 06/07/23 06/07/23 06/07/23 13:31 13:31 13:55 WBC 13.11 H RBC 4.56 Hgb 12.7 Hct 38.7 MCV 84.9 MCH 27.9 MCHC 32.8 RDW Std Deviation 44.0 RDW Coeff of Padmini 14.3 Plt Count 514 H MPV 10.2 Immature Gran % (Auto) 0.3 Neut % (Auto) 54.0 Lymph % (Auto) 39.1 [place] % (Auto) 3.8 Eos % (Auto) 2.4 Baso % (Auto) 0.4 Neut # (Auto) 7.08 H Lymph # (Auto) 5.13 H [place] # (Auto) 0.50 Eos # (Auto) 0.31 Baso # (Auto) 0.05 Immature Gran # (Auto) 0.04 Sodium Potassium Chloride Carbon Dioxide Anion Gap BUN Creatinine Est Cr Clr Drug Dosing Est GFR ( Amer) Est GFR (Non-Af Amer) BUN/Creatinine Ratio Glucose Calcium Total Bilirubin AST ALT Alkaline Phosphatase Total Protein Albumin Globulin Albumin/Globulin Ratio TSH Free T4 HCG, Qual Urine Color Yellow Urine Appearance Clear Urine pH 7.5 Ur Specific [place] 1.004 Urine Protein Negative Urine Glucose (UA) Negative Urine Ketones Negative Urine Blood Negative Urine Nitrite Negative Urine Bilirubin Negative Urine Urobilinogen Negative Ur Leukocyte Esterase 1+ H Urine WBC (Auto) 0 Urine RBC (Auto) 0-4 U Hyaline Cast (Auto) 0 U Epithel Cells (Auto) 5-10 H Urine Bacteria (Auto) Negative Salicylates Urine Opiates Screen Neg Ur Methadone, Qual Neg Acetaminophen Urine Barbiturates Neg Ur Phencyclidine (PCP) Neg U Amphetamin/Meth Scrn Neg MDMA (Ecstasy) Screen Neg U Benzodiazepines Scrn Neg Barlow Ur Cocaine Metabolite Neg U Marijuana (THC) Screen Neg Ethyl Alcohol mg/dL SARS-CoV-2, RNA, NAAT 06/07/23 06/07/23 06/07/23 13:55 13:55 13:55 WBC RBC Hgb Hct MCV MCH MCHC RDW Std Deviation RDW Coeff of Padmini Plt Count MPV Immature Gran % (Auto) Neut % (Auto) Lymph % (Auto) [place] % (Auto) Eos % (Auto) Baso % (Auto) Neut # (Auto) Lymph # (Auto) [place] # (Auto) Eos # (Auto) Baso # (Auto) Immature Gran # (Auto) Sodium 139 Potassium 3.8 Chloride 110 H Carbon Dioxide 22 Anion Gap 7 BUN 9 Creatinine 0.90 Est Cr Clr Drug Dosing 114.4 Est GFR ( Amer) 102.3 Est GFR (Non-Af Amer) 88.2 BUN/Creatinine Ratio 10.0 Glucose 102 H Calcium 9.7 Total Bilirubin 0.2 AST 37 ALT 73 H Alkaline Phosphatase 154 H Total Protein 7.8 Albumin 4.5 Globulin 3.3 Albumin/Globulin Ratio 1.4 TSH 5.379 H Free T4 0.58 L HCG, Qual Urine Color Urine Appearance Urine pH Ur Specific [place] Urine Protein Urine Glucose (UA) Urine Ketones Urine Blood Urine Nitrite Urine Bilirubin Urine Urobilinogen Ur Leukocyte Esterase Urine WBC (Auto) Urine RBC (Auto) U Hyaline Cast (Auto) U Epithel Cells (Auto) Urine Bacteria (Auto) Salicylates < 3.0 L Urine Opiates Screen Ur Methadone, Qual Acetaminophen < 3 L Urine Barbiturates Ur Phencyclidine (PCP) U Amphetamin/Meth Scrn MDMA (Ecstasy) Screen U Benzodiazepines Scrn Barlow 1.2 Ur Cocaine Metabolite U Marijuana (THC) Screen Ethyl Alcohol mg/dL < 10.0 SARS-CoV-2, RNA, NAAT 06/07/23 06/07/23 13:55 Unknown WBC RBC Hgb Hct MCV MCH MCHC RDW Std Deviation RDW Coeff of Padmini Plt Count MPV Immature Gran % (Auto) Neut % (Auto) Lymph % (Auto) [place] % (Auto) Eos % (Auto) Baso % (Auto) Neut # (Auto) Lymph # (Auto) [place] # (Auto) Eos # (Auto) Baso # (Auto) Immature Gran # (Auto) Sodium Potassium Chloride Carbon Dioxide Anion Gap BUN Creatinine Est Cr Clr Drug Dosing Est GFR ( Amer) Est GFR (Non-Af Amer) BUN/Creatinine Ratio Glucose Calcium Total Bilirubin AST ALT Alkaline Phosphatase Total Protein Albumin Globulin Albumin/Globulin Ratio TSH Free T4 HCG, Qual Negative Urine Color Urine Appearance Urine pH Ur Specific [place] Urine Protein Urine Glucose (UA) Urine Ketones Urine Blood Urine Nitrite Urine Bilirubin Urine Urobilinogen Ur Leukocyte Esterase Urine WBC (Auto) Urine RBC (Auto) U Hyaline Cast (Auto) U Epithel Cells (Auto) Urine Bacteria (Auto) Salicylates Urine Opiates Screen Ur Methadone, Qual Acetaminophen Urine Barbiturates Ur Phencyclidine (PCP) U Amphetamin/Meth Scrn MDMA (Ecstasy) Screen U Benzodiazepines Scrn Barlow Ur Cocaine Metabolite U Marijuana (THC) Screen Ethyl Alcohol mg/dL SARS-CoV-2, RNA, NAAT NEGATIVE Diagnostic Findings EKG 06/07/2023 nl qtc Current Inpatient Medications Current Inpatient Medications: Current Inpatient Medications Acetaminophen (Acetaminophen 325 Mg Tab) 650 mg PO Q4H PRN PRN Reason: Headache or Minor Fever Stop: 07/07/23 17:06 Al Hydrox/Mg Hydrox/Simethicone (Aluminum/Magnesium Susp 30 Ml Udc) 30 ml PO Q4H PRN PRN Reason: GI Upset Stop: 07/07/23 17:06 Benztropine Mesylate (Benztropine Mesylate 1 Mg Tab) 1 mg PO BID [facility] Stop: 07/07/23 20:59 Last Admin: 06/07/23 21:24 Dose: 1 mg Bismuth Subsalicylate (Bismuth Subsalicylate Liqd 236 Ml) 15 ml PO PRN PRN PRN Reason: Loose Stool Stop: 07/07/23 17:06 Clomipramine HCl (Clomipramine Hcl 25 Mg Capsule) 25 mg PO DAILY@1600 [facility] Stop: 07/07/23 18:59 Last Admin: 06/07/23 20:13 Dose: 25 mg Fluticasone Propionate (Fluticasone Propionate Na Spr 16 Gm Btl) 1 sprays NA HS JOAQUIN Stop: 07/07/23 21:59 Last Admin: 06/07/23 21:26 Dose: 1 sprays Guanfacine HCl (Guanfacine Hcl 1 Mg Tab) 1 mg PO BID JOAQUIN Stop: 07/07/23 20:59 Last Admin: 06/07/23 21:24 Dose: 1 mg Hydroxyzine HCl (Hydroxyzine Hcl 25 Mg Tab) 50 mg PO HSZ PRN PRN Reason: Insomnia Stop: 07/07/23 17:06 Hydroxyzine HCl (Hydroxyzine Hcl 25 Mg Tab) 25 mg PO Q4H PRN PRN Reason: Anxiety Stop: 07/07/23 17:06 Last Admin: 06/07/23 19:01 Dose: 25 mg Lactase (Lactase 3000 Unit Tab) 3,000 units PO AC PRN PRN Reason: Lactose Intolerance Stop: 07/07/23 17:10 Lansoprazole (Lansoprazole 30 Mg Soltab) 30 mg PO BID JOAQUIN Stop: 07/07/23 20:59 Last Admin: 06/07/23 21:24 Dose: 30 mg Barlow Carbonate (Barlow Carbonate 450 Mg Tabcr) 900 mg PO BID JOAQUIN Stop: 07/07/23 20:59 Last Admin: 06/07/23 21:24 Dose: 900 mg Lorazepam (Lorazepam 1 Mg Tab) 1 mg PO Q4 PRN PRN Reason: Anxiety Stop: 07/07/23 19:29 Last Admin: 06/07/23 19:54 Dose: 1 mg Magnesium Hydroxide (Magnesium Hydroxide Susp 30 Ml Udc) 30 ml PO DAILY PRN PRN Reason: Constipation Stop: 07/07/23 17:06 Multivitamins (Multivitamin Tab) 1 tab PO QAM JOAQUIN Stop: 07/08/23 08:59 Olanzapine- Samidorphan~Non- Formulary Patient's Own Med 1 each PO HS JOAQUIN Stop: 07/07/23 21:59 Last Admin: 06/07/23 21:27 Dose: 1 tab Clindamycin/Benzoyl Peroxide~Non- Formulary Patient's Own Med 1 each TOP PM JOAQUIN Stop: 07/07/23 20:59 Last Admin: 06/07/23 21:24 Dose: 1 units Clomipramine 75mg Cap~Non-Formulary Patient's Own Med 1 each PO DAILY@1600 [facility] Stop: 07/07/23 19:29 Last Admin: 06/07/23 20:12 Dose: 75 mg Pimozide (Pimozide 1mg) 1 each PO BID [facility] Stop: 07/07/23 20:59 Last Admin: 06/07/23 21:25 Dose: 1 each Sodium Chloride (Sodium Chloride 0.65% Na Soln 45 Ml ([place])) 1 - 2 sprays NA PRN PRN PRN Reason: Nasal Dryness/Congestion Stop: 07/07/23 17:06 Testosterone (Testosterone Gel) 1 appln TOP DAILY [facility] Stop: 07/08/23 08:59
[2023-06-08 08:38] LABS: Chol HDL Ratio 5.6 (0-5)
[2023-06-08] MEDS ORDERED: NON-FORMULARY PATIENT'S OWN MED TOP SCH (09:00)
[2023-06-08] MEDS ORDERED: TESTOSTERONE SCH (09:00)
[2023-06-08] MEDS: guanFACINE HCL 1 MG TAB PO SCH ×2 (09:38→17:09)
[2023-06-08] MEDS: BENZTROPINE MESYLATE 1 MG TAB PO SCH ×2 (09:38→21:31)
[2023-06-08] MEDS: LITHIUM CARBONATE 450 MG TABCR PO SCH ×2 (09:39→21:34)
[2023-06-08] MEDS: LANSOPRAZOLE 30 MG SOLTAB PO SCH ×2 (09:39→21:33)
[2023-06-08] MEDS: TESTOSTERONE GEL TOP SCH (09:40)
[2023-06-08] MEDS: MULTIVITAMIN TAB PO SCH (09:40)
[2023-06-08] MEDS: PIMOZIDE 1 MG PO SCH ×2 (10:25→21:36)
[2023-06-08] MEDS: LORazepam 1 MG TAB PO PRN (16:23)
[2023-06-08] MEDS: hydrOXYzine HCl 25 MG TAB PO PRN (16:56)
[2023-06-08] MEDS: CLOMIPRAMINE HCL 25 MG CAPSULE PO SCH (17:00)
[2023-06-08] MEDS: CLOMIPRAMINE 75 MG PO SCH (17:07)
[2023-06-08] MEDS: FLUTICASONE PROPIONATE NA SPR 16 GM BTL SCH (21:38)
[2023-06-08] MEDS: OLANZAPINE SAMIDORPHAN PO SCH (21:39)
[2023-06-08] MEDS: CLINDAMYCIN TOP SCH (21:41)
[2023-06-08] MEDS: BENZOYL PEROXIDE TOP SCH (21:41)
[2023-06-09] MEDS: hydrOXYzine HCl 25 MG TAB PO PRN (03:30)
[2023-06-09] MEDS: BENZTROPINE MESYLATE 1 MG TAB PO SCH ×2 (08:01→21:28)
[2023-06-09] MEDS: LANSOPRAZOLE 30 MG SOLTAB PO SCH ×2 (08:01→21:29)
[2023-06-09] MEDS: MULTIVITAMIN TAB PO SCH (08:01)
[2023-06-09] MEDS: guanFACINE HCL 1 MG TAB PO SCH ×2 (08:01→17:40)
[2023-06-09] MEDS: LITHIUM CARBONATE 450 MG TABCR PO SCH ×2 (08:01→21:31)
[2023-06-09] MEDS: PIMOZIDE 1 MG PO SCH ×2 (08:02→21:34)
[2023-06-09] MEDS: LORazepam 1 MG TAB PO PRN (09:50)
[2023-06-09] MEDS: TESTOSTERONE GEL TOP SCH (10:00)
[2023-06-09] MEDS ORDERED: LORazepam 1 MG TAB PO PRN ×2 (11:52→17:26)
[2023-06-09] MEDS: clonazePAM 1 MG TAB PO SCH ×3 (12:14→21:38)
[2023-06-09] MEDS: CLOMIPRAMINE HCL 25 MG CAPSULE PO SCH (16:24)
[2023-06-09] MEDS: CLOMIPRAMINE 75 MG PO SCH (16:24)
--- NOTE | 2023-06-09 17:41 | Psychiatric Progress Note ---
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 MNPR as impulsive, reports auditory command bowers, limited social skills 06/09/23: Extensive review of impressions, patient presents like a patient with autism and hypomania which is not surprising given prior dx RAD with developmental delay and ADHD. Mother reports primary issue has always been OCD which is primarily obsessional which would be hard to differentiate from perseveration. Currently more obsessional than psychotic. Hypomanic symptoms seem worse on higher dose of Lybalvi so can't exclude some degree of akathisia. Overall, I spent a total of 80 minutes with this case, including review of chart/records, direct evaluation of the patient, counseling the patient, treatment team, phone session with guardian and patient around meds, risk assessment, and documentation. (1) Schizophrenia: (2) Obsessive compulsive disorder: (3) ADHD (attention deficit hyperactivity disorder): Plan 06/09/23: Full medication review with patient and mother. Will decrease Lybalvi as a trial basis as suspect side effect. As non-formulary will offer Zyprexa 10 mg this hs and cover with benzodiazepine for symptomatic relief. As minimal response to Ativan 1 mg, opted for Klonopin 1 mg possibly TID dosing if needed. Patient received first 2 doses relatively close together and did sleep for significant period so will adjust to 0.5 mg TID. Risks/benefits/alternatives reviewed re: Klonopin and controlled substance. Patient does not drink alcohol. 06/08/23: The patient was admitted to the [facility] ([facility] mental health unit) on q15 min checks (behavioral with suicide precautions) for safety. The patient will participate in group, recreational, and milieu therapies and will be offered additional individual and family sessions as clinically appropriate. Patient assents to continue current medications pending full review of risks/benefits with guardian. Inventory Assets Strengths: verbal, agreeable to services Needs: improve coping, redirect own attention Suicide Risk Level Suicide Risk Level: Low (q15 min observation checks) (patient is on homicide checks rather than straight observational) Risk Factors Assessment Male: Yes : Yes Do You Have Access To A Gun?: No Mental Health Diagnoses: Yes Previous Attempt: Yes Previous Psychiatric Hospitalization: Yes Protective Factors Assessment : No Stable Relationships: Yes Supportive Family: Yes Good Rapport with Provider: Yes Interval History Identifying Information Jim (Lori HERNANDEZ) is a 28-year-old trans male who identifies as Jim (he/him) who currently lives in [place] with adoptive parents, has a history of developmental delay, schizophrenia, and OCD, and was admitted on 06/07/23 17:07 on a 201 voluntary commitment for auditory command hallucinations. Chief Complaint "I called my mom, if I leave Wednesday I"m going to hurt somebody." Review of Systems Sleep Information Total Hours of Sleep: 4.25 Meal Information Percent Meal Consumed - Breakfast: 100 Percent Meal Consumed - Lunch: 100 Percent Meal Consumed - Dinner: 25 Subjective Subjective Patient was seen & assessed and interval progress reviewed with treatment team. Patient has been very attention seeking per staff in groups, needs frequent redirection for verbally intrussive, frequent trips to nurses station seeking attention/perseverating on certain questions. Borders on hyper, denies subjective akathisia. Staff set some expectations for behavior on unit but patient remained focussed on medications and called mother making suicidal statement. Mother is well aware of his comments toward family and her. They both consistently state that the voices directing the patient they would stop if acting on them were new but deals with chronic intermittent SI and sometimes bowers. was initially dx with bipolar as a child then schizoaffective/schizophrenia. hx of ADHD but current symptoms are "beyond" typical talkativenss. No other symptoms of chuck. Here appears to be overstimulated around peers. Physical Exam Psychiatric Orientation: alert and oriented x 3 Apperance: appropriately dressed and appropriately groomed Eye Contact: good eye contact Motor Behavior: no abnormal motor movements Speech: + abnormal rate/rhythm/volume of speech (hyperverbal) Affect: euthymic affect Mood: + anxious mood Thought Process: + perseveration Thought Content: reality based without delusions Suicidal Thoughts: denies suicidal thoughts Homicidal Thoughts: denies homicidal thoughts Hallucinations: + auditory hallucinations (patient reports but does not appear to be responding to internal stimuli); no visual hallucinations Cognition: language grossly intact; + attention not intact Estimated Intelligence: + below average estimated intelligence Insight: + limited insight Judgment: + limited judgement Vital Signs (Past 24 Hours) Last Vital Signs Temp 36.9 C 06/09/23 06:45 Pulse 116 H 06/09/23 06:45 Resp 16 06/09/23 06:45 BP 130/89 06/09/23 06:45 Pulse Ox 98 06/07/23 19:39 O2 Del Method Room Air 06/07/23 19:39 Results & Data ([facility]) Current Inpatient Medications Current Inpatient Medications: Current Inpatient Medications Acetaminophen (Acetaminophen 325 Mg Tab) 650 mg PO Q4H PRN PRN Reason: Headache or Minor Fever Stop: 07/07/23 17:06 Al Hydrox/Mg Hydrox/Simethicone (Aluminum/Magnesium Susp 30 Ml Udc) 30 ml PO Q4H PRN PRN Reason: GI Upset Stop: 07/07/23 17:06 Benztropine Mesylate (Benztropine Mesylate 1 Mg Tab) 1 mg PO BID [facility] Stop: 07/07/23 20:59 Last Admin: 06/09/23 08:01 Dose: 1 mg Bismuth Subsalicylate (Bismuth Subsalicylate Liqd 236 Ml) 15 ml PO PRN PRN PRN Reason: Loose Stool Stop: 07/07/23 17:06 Clomipramine HCl (Clomipramine Hcl 25 Mg Capsule) 25 mg PO DAILY@1600 [facility] Stop: 07/07/23 18:59 Last Admin: 06/09/23 16:24 Dose: 25 mg Clonazepam (Clonazepam 0.5 Mg Tab) 0.5 mg PO TID [facility] Stop: 07/09/23 20:59 Fluticasone Propionate (Fluticasone Propionate Na Spr 16 Gm Btl) 1 sprays NA HS [facility] Stop: 07/07/23 21:59 Last Admin: 06/08/23 21:38 Dose: 1 sprays Guanfacine HCl (Guanfacine Hcl 1 Mg Tab) 1 mg PO BIDM [facility] Stop: 07/08/23 17:44 Last Admin: 06/09/23 08:01 Dose: 1 mg Hydroxyzine HCl (Hydroxyzine Hcl 25 Mg Tab) 50 mg PO HSZ PRN PRN Reason: Insomnia Stop: 07/07/23 17:06 Last Admin: 06/08/23 23:15 Dose: 50 mg Hydroxyzine HCl (Hydroxyzine Hcl 25 Mg Tab) 25 mg PO Q4H PRN PRN Reason: Anxiety Stop: 07/07/23 17:06 Last Admin: 06/09/23 03:30 Dose: 25 mg Lactase (Lactase 3000 Unit Tab) 3,000 units PO AC PRN PRN Reason: Lactose Intolerance Stop: 07/07/23 17:10 Lansoprazole (Lansoprazole 30 Mg Soltab) 30 mg PO BID [facility] Stop: 07/07/23 20:59 Last Admin: 06/09/23 08:01 Dose: 30 mg [place] Carbonate ([place] Carbonate 450 Mg Tabcr) 900 mg PO BID [facility] Stop: 07/07/23 20:59 Last Admin: 06/09/23 08:01 Dose: 900 mg Lorazepam (Lorazepam 1 Mg Tab) 1 mg PO Q8 PRN PRN Reason: Anxiety Stop: 07/09/23 11:51 Magnesium Hydroxide (Magnesium Hydroxide Susp 30 Ml Udc) 30 ml PO DAILY PRN PRN Reason: Constipation Stop: 07/07/23 17:06 Multivitamins (Multivitamin Tab) 1 tab PO QAM [facility] Stop: 07/08/23 08:59 Last Admin: 06/09/23 08:01 Dose: 1 tab Clindamycin/Benzoyl Peroxide~Non- Formulary Patient's Own Med 1 each TOP PM [facility] Stop: 07/07/23 20:59 Last Admin: 06/08/23 21:41 Dose: 1 units Clomipramine 75mg Cap~Non-Formulary Patient's Own Med 1 each PO DAILY@1600 [facility] Stop: 07/07/23 19:29 Last Admin: 06/09/23 16:24 Dose: 75 mg Olanzapine (Olanzapine 10 Mg Tab) 10 mg PO HS [facility] Stop: 07/09/23 21:59 Pimozide (Pimozide 1mg) 1 each PO BID [facility] Stop: 07/07/23 20:59 Last Admin: 06/09/23 08:02 Dose: 1 each Sodium Chloride (Sodium Chloride 0.65% Na Soln 45 Ml ([place])) 1 - 2 sprays NA PRN PRN PRN Reason: Nasal Dryness/Congestion Stop: 07/07/23 17:06 Testosterone (Testosterone Gel) 1 appln TOP DAILY [facility] Stop: 07/08/23 08:59 Last Admin: 06/09/23 10:00 Dose: 1 appln Mental Health & Subst Abuse Tx Psychiatrist Name of Psychiatrist: Sergio Jimenez Psychiatrist's Date Of Appointment With Psychiatric Provider: 06/28/2023 Time of Appointment with Psychiatrist: 2pm Psychiatric Appointment Comment: [address] [place] [address] Therapist Name of Therapist: Dr. Josue Felix Date of Therapist Appointment: 06/11/2023 Time of Therapist Appointment: 2:20 pm Therapy Appointment Comment: [address] [facility], [place] [address] Post Discharge Appointments Primary Care Physician Name Of Family Doctor/PCP: Farhan Primary Care Provider Appointment Comment: [address] [place] [address] Contact Information Discharge Discharge Address: [address] [place] [address]
[2023-06-09] MEDS ORDERED: clonazePAM 0.5 MG TAB PO SCH (21:00)
[2023-06-09] MEDS: BENZOYL PEROXIDE TOP SCH (21:33)
[2023-06-09] MEDS: CLINDAMYCIN TOP SCH (21:33)
[2023-06-09] MEDS: OLANZapine 10 MG TAB PO SCH (21:35)
[2023-06-09] MEDS: FLUTICASONE PROPIONATE NA SPR 16 GM BTL SCH (21:35)
[2023-06-10 06:40] VITALS: RESP 18
[2023-06-10] MEDS: BENZTROPINE MESYLATE 1 MG TAB PO SCH ×2 (08:41→21:03)
[2023-06-10] MEDS: guanFACINE HCL 1 MG TAB PO SCH ×2 (08:41→17:23)
[2023-06-10] MEDS: MULTIVITAMIN TAB PO SCH (08:42)
[2023-06-10] MEDS: LANSOPRAZOLE 30 MG SOLTAB PO SCH ×2 (08:42→21:03)
[2023-06-10] MEDS: LITHIUM CARBONATE 450 MG TABCR PO SCH ×2 (08:42→21:03)
[2023-06-10] MEDS: TESTOSTERONE GEL TOP SCH (08:43)
[2023-06-10] MEDS: PIMOZIDE 1 MG PO SCH ×2 (08:43→21:04)
[2023-06-10] MEDS: clonazePAM 1 MG TAB PO SCH ×3 (08:46→21:06)
--- NOTE | 2023-06-10 10:54 | Psychiatric Progress Note ---
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 MNPR as impulsive, reports auditory command bowers, limited social skills 06/10/23: significant improvement, is less specific about bowers Overall, I spent a total of 40 minutes with this case, including review of chart/records, direct evaluation of the patient, counseling the patient, coordination with nursing, and documentation. (1) Schizophrenia: (2) Obsessive compulsive disorder: (3) ADHD (attention deficit hyperactivity disorder): Plan 06/10/23: continue current meds and tx plan, in person visit with mother to see interactions 06/09/23: Full medication review with patient and mother. Will decrease Lybalvi as a trial basis as suspect side effect. As non-formulary will offer Zyprexa 10 mg this hs and cover with benzodiazepine for symptomatic relief. As minimal response to Ativan 1 mg, opted for Klonopin 1 mg possibly TID dosing if needed. Patient received first 2 doses relatively close together and did sleep for significant period so will adjust to 0.5 mg TID. Risks/benefits/alternatives reviewed re: Klonopin and controlled substance. Patient does not drink alcohol. 06/08/23: The patient was admitted to the [facility] ([facility] mental health unit) on q15 min checks (behavioral with suicide precautions) for safety. The patient will participate in group, recreational, and milieu therapies and will be offered additional individual and family sessions as clinically appropriate. Patient assents to continue current medications pending full review of risks/benefits with guardian. Inventory Assets Strengths: verbal, agreeable to services Needs: improve coping, redirect own attention Suicide Risk Level Suicide Risk Level: Low (q15 min observation checks) (patient is on homicide checks rather than straight observational) Risk Factors Assessment Male: Yes : Yes Do You Have Access To A Gun?: No Mental Health Diagnoses: Yes Previous Attempt: Yes Previous Psychiatric Hospitalization: Yes Protective Factors Assessment : No Stable Relationships: Yes Supportive Family: Yes Good Rapport with Provider: Yes Interval History Identifying Information Jim (Lori HERNANDEZ) is a 28-year-old trans male who identifies as Jim (he/him) who currently lives in [place] with adoptive parents, has a history of developmental delay, schizophrenia, and OCD, and was admitted on 06/07/23 17:07 on a 201 voluntary commitment for auditory command hallucinations. Chief Complaint "It's nice not to have so many voices." Review of Systems Sleep Information Total Hours of Sleep: 5 Sleep Comments: pt up and down during the night, going to the dayarea to drink ice water. pt on q-15 minute checks Meal Information Percent Meal Consumed - Breakfast: 75 Percent Meal Consumed - Lunch: 100 Percent Meal Consumed - Dinner: 25 Subjective Subjective Patient was seen & assessed and interval progress reviewed with nursing and social work. Patient is much less intrussive in interactions with others, slept better than previous night. Is able to tolerate more discussion around intrussiv e thoughts/OCD vs. bowers. Discussed stop techniques. Patient reports no longer feeling suicidal. Worries about their routine and if meds are still adjusted properly. Physical Exam Psychiatric Orientation: alert and oriented x 3 Apperance: appropriately dressed and appropriately groomed Eye Contact: good eye contact Motor Behavior: no abnormal motor movements Speech: normal rate/rhythm/volume of speech Affect: euthymic affect Mood: + anxious mood Thought Process: + perseveration (decreased) Thought Content: reality based without delusions Suicidal Thoughts: denies suicidal thoughts Homicidal Thoughts: denies homicidal thoughts Hallucinations: + auditory hallucinations (patient reports but does not appear to be responding to internal stimuli); no visual hallucinations Cognition: language grossly intact; + attention not intact Estimated Intelligence: + below average estimated intelligence Insight: + limited insight Judgment: + limited judgement Vital Signs (Past 24 Hours) Last Vital Signs Temp 36.9 C 06/10/23 06:39 Pulse 114 H 06/10/23 06:39 Resp 18 06/10/23 06:39 BP 136/95 06/10/23 06:39 Pulse Ox 98 06/07/23 19:39 O2 Del Method Room Air 06/07/23 19:39 Results & Data ([facility]) Current Inpatient Medications Current Inpatient Medications: Current Inpatient Medications Acetaminophen (Acetaminophen 325 Mg Tab) 650 mg PO Q4H PRN PRN Reason: Headache or Minor Fever Stop: 07/07/23 17:06 Al Hydrox/Mg Hydrox/Simethicone (Aluminum/Magnesium Susp 30 Ml Udc) 30 ml PO Q4H PRN PRN Reason: GI Upset Stop: 07/07/23 17:06 Benztropine Mesylate (Benztropine Mesylate 1 Mg Tab) 1 mg PO BID [facility] Stop: 07/07/23 20:59 Last Admin: 06/10/23 08:41 Dose: 1 mg Bismuth Subsalicylate (Bismuth Subsalicylate Liqd 236 Ml) 15 ml PO PRN PRN PRN Reason: Loose Stool Stop: 07/07/23 17:06 Clomipramine HCl (Clomipramine Hcl 25 Mg Capsule) 25 mg PO DAILY@1600 [facility] Stop: 07/07/23 18:59 Last Admin: 06/09/23 16:24 Dose: 25 mg Clonazepam (Clonazepam 1 Mg Tab) 1 mg PO TID [facility] Stop: 07/09/23 20:59 Last Admin: 06/10/23 08:46 Dose: 1 mg Fluticasone Propionate (Fluticasone Propionate Na Spr 16 Gm Btl) 1 sprays NA HS [facility] Stop: 07/07/23 21:59 Last Admin: 06/09/23 21:35 Dose: 1 sprays Guanfacine HCl (Guanfacine Hcl 1 Mg Tab) 1 mg PO BIDM [facility] Stop: 07/08/23 17:44 Last Admin: 06/10/23 08:41 Dose: 1 mg Hydroxyzine HCl (Hydroxyzine Hcl 25 Mg Tab) 50 mg PO HSZ PRN PRN Reason: Insomnia Stop: 07/07/23 17:06 Last Admin: 06/08/23 23:15 Dose: 50 mg Hydroxyzine HCl (Hydroxyzine Hcl 25 Mg Tab) 25 mg PO Q4H PRN PRN Reason: Anxiety Stop: 07/07/23 17:06 Last Admin: 06/09/23 03:30 Dose: 25 mg Lactase (Lactase 3000 Unit Tab) 3,000 units PO AC PRN PRN Reason: Lactose Intolerance Stop: 07/07/23 17:10 Lansoprazole (Lansoprazole 30 Mg Soltab) 30 mg PO BID [facility] Stop: 07/07/23 20:59 Last Admin: 06/10/23 08:42 Dose: 30 mg [place] Carbonate (C[place]ce Carbonate 450 Mg Tabcr) 900 mg PO BID [facility] Stop: 07/07/23 20:59 Last Admin: 06/10/23 08:42 Dose: 900 mg Lorazepam (Lorazepam 1 Mg Tab) 1 mg PO Q8H PRN PRN Reason: Anxiety Stop: 07/09/23 17:25 Magnesium Hydroxide (Magnesium Hydroxide Susp 30 Ml Udc) 30 ml PO DAILY PRN PRN Reason: Constipation Stop: 07/07/23 17:06 Multivitamins (Multivitamin Tab) 1 tab PO QAM [facility] Stop: 07/08/23 08:59 Last Admin: 06/10/23 08:42 Dose: 1 tab Clindamycin/Benzoyl Peroxide~Non- Formulary Patient's Own Med 1 each TOP PM [facility] Stop: 07/07/23 20:59 Last Admin: 06/09/23 21:33 Dose: 1 units Clomipramine 75mg Cap~Non-Formulary Patient's Own Med 1 each PO DAILY@1600 [facility] Stop: 07/07/23 19:29 Last Admin: 06/09/23 16:24 Dose: 75 mg Olanzapine (Olanzapine 10 Mg Tab) 10 mg PO HS [facility] Stop: 07/09/23 21:59 Last Admin: 06/09/23 21:35 Dose: 10 mg Pimozide (Pimozide 1mg) 1 each PO BID [facility] Stop: 07/07/23 20:59 Last Admin: 06/10/23 08:43 Dose: 1 each Sodium Chloride (Sodium Chloride 0.65% Na Soln 45 Ml ([place])) 1 - 2 sprays NA PRN PRN PRN Reason: Nasal Dryness/Congestion Stop: 07/07/23 17:06 Testosterone (Testosterone Gel) 1 appln TOP DAILY [facility] Stop: 07/08/23 08:59 Last Admin: 06/10/23 08:43 Dose: 1 appln Mental Health & Subst Abuse Tx Psychiatrist Name of Psychiatrist: Sergio Jimenez Psychiatrist's Date Of Appointment With Psychiatric Provider: 06/28/2023 Time of Appointment with Psychiatrist: 2pm Psychiatric Appointment Comment: [address] [place] [address] Therapist Name of Therapist: Dr. Josue Felix Date of Therapist Appointment: 06/11/2023 Time of Therapist Appointment: 2:20 pm Therapy Appointment Comment: [address], [place] [address] Post Discharge Appointments Primary Care Physician Name Of Family Doctor/PCP: Farhan Primary Care Provider Appointment Comment: [address] [place] [address] Contact Information Discharge Discharge Address: [address] [place] [address]
[2023-06-10] MEDS: CLOMIPRAMINE 75 MG PO SCH (15:46)
[2023-06-10] MEDS: CLOMIPRAMINE HCL 25 MG CAPSULE PO SCH (15:47)
[2023-06-10] MEDS: ACETAMINOPHEN 325 MG TAB PO PRN (20:47)
[2023-06-10] MEDS: FLUTICASONE PROPIONATE NA SPR 16 GM BTL SCH (21:03)
[2023-06-10] MEDS: OLANZapine 10 MG TAB PO SCH (21:03)
[2023-06-10] MEDS: BENZOYL PEROXIDE TOP SCH (21:04)
[2023-06-10] MEDS: CLINDAMYCIN TOP SCH (21:04)
[2023-06-11 06:53] VITALS: BP 123/84; TEMP 98.2
[2023-06-11] MEDS: BENZTROPINE MESYLATE 1 MG TAB PO SCH (09:36)
[2023-06-11] MEDS: guanFACINE HCL 1 MG TAB PO SCH (09:36)
[2023-06-11] MEDS: LANSOPRAZOLE 30 MG SOLTAB PO SCH (09:37)
[2023-06-11] MEDS: LITHIUM CARBONATE 450 MG TABCR PO SCH (09:37)
[2023-06-11] MEDS: MULTIVITAMIN TAB PO SCH (09:37)
[2023-06-11] MEDS: PIMOZIDE 1 MG PO SCH (09:43)
[2023-06-11] MEDS: clonazePAM 1 MG TAB PO SCH ×2 (09:44→13:39)
[2023-06-11] MEDS: TESTOSTERONE GEL TOP SCH (09:49)
[2023-06-11] MEDS: ACETAMINOPHEN 325 MG TAB PO PRN (12:14)
[2023-06-11 12:56] VITALS: PULSE 93
--- NOTE | 2023-06-11 13:58 | Discharge Summary ---
Date of Service June 11, 2023 History of Present Illness as per ED CM: Patient admits he has baseline suicidal ideations, however, last , the voices in patient's head became command in nature tell him to kill his parents, stating "if you just kill them the voices will go away." Patient has had previous psychiatric admissions and suicide attempt of jumping out of a window. Patient's Mom contacted psychiatrist in an attempt to avoid admission and it was suggested that patient increase his Lybalvi. Patient's Mom reports patient is accustomed to quick titrating and was hopeful this would help, but it did not; hence why the patient is in the ED. Patient is generally compliant with medication, however, missed two morning doses about two weeks ago and has caused him to feel off. Patient's Mom reports he is diagnosed with Schizophrenia and OCD. Patient reports when he begins having these negative thoughts, he puts on his headphones. Patient explains that "my thoughts are tied to my feelings and I act on those." Patient reports that it usually started with increase anxiety, turns to negative thoughts and the voices begin. Patient's parents have guardianship of patient, since June 29, 2016, paperwork is on chart. Patient reports that any time they are not engaged in an activity they have "hallcinations", this creates anxiety as don't want to act on the impulses. Has been in care for OCD/psych sx since 5th grade, required hospitalization for psychotic symptoms while on stimulant. They are rather concrete in history but do note reasonable relationship with roommates and parents. They attend activities at [employer] and work at [employer]. Physical Exam Psychiatric See admission H&P and DOD assessment. Vital Signs (Past 24 Hours) Last Vital Signs Temp 36.8 C 06/11/23 12:53 Pulse 93 H 06/11/23 12:53 Resp 18 06/11/23 12:53 BP 123/84 06/11/23 12:53 Pulse Ox 98 06/11/23 12:53 O2 Del Method Room Air 06/07/23 19:39 Principal Diagnosis schizophrenia (schizoaffective disorder) by history Psychiatric Data See daily stay summary. In short, safety was maintained and the patient was cooperative with care. He did require frequent redirection from staff for verbal intrusiveness and attention seeking to get acclimated to unit rules as was initially overstimulated by peers/new environment and/or disinhibited by psychiatric condition or medication side effects. Initially if he was redirected from the door to the nurses station he would make comments that if he wasn't going to get help he might as well jump out the window and almost immediately denied suicidal intent. He frequently reported auditory command hallucinations but did not appear to be responding to internal stimuli an was otherwise organized and without paranoid content. Jim's complex psychiatric history was reviewed with his mother (guardian). Impressions included that he presented more as developmental delay, possibly neurodivergent, with perseveration/OCD rather than active psychosis. His symptoms seemed to worsen on the higher dose of Lybalvi and indications and dosing for each of his meds were approved by the patient and his mother. Both agreed to decrease Lybalvi to 10 mg dose of Zyprexa (active ingredient in Lybalvi) temporarily and add a Klonopin trial for anxiety. Discussion included but was not limited to longer term risks with his medication. He had some mild sedation the first evening but remained bright and active in unit routines and related to peers. He was free of the voices within 24 hrs and interacted appropriately with his mother during visiting hours in 06/10/23. Given his history of institutionalization and extensive community supports, during the initial meeting with patient and guardian discussed recommendation to keep hospitalization brief and all were in agreement. A set time for discharge on 06/11/23 was not set pending a 2:30 pm. meeting with Hazel Beverly. The patient indicated that he preferred to leave early to take advantage of his standing therapy appointment at 2:20 pm. Dorota was contacted and was supportive of that plan and could meet him after the appointment. Clinical Leader was notified that a Lyft could be arranged while family (as our understanding was patient takes publich transportation to work at [employer]) was contacted to confirm plan and re-review medications. For example, Lybalvi was returned as may be able to use in future but not an active med as would be duplicate with straight olanzapine. Jim reported picking up his medications at the pharmacy but family helps at times/does hold some. Mother voiced good understanding to nurse but preferred to provide transportation when there was a communication conflict with the Lyft. Parents spoke with nurse vmware systems administrator for ensure all their concerns re: logistics of his discharge were addressed. Jim reported he plans to advocate for a decrease in hours at work as an increase in hours was an identified stressor. Also of note, lithium level is therapeutic, reviewed thyroid panel should be repeated due to risk of hypothyroidism with lithium. He has not taken Synthroid previously and reviewed that would not recommend initiating during inpatient given his current presentation. Day of Discharge Assessment Today the patient voices readiness for discharge. They note improvement in mood and deny thoughts to harm self or others. Thoughts remain organized and they are significantly improved from admission. There is no evidence of psychosis. They agree to take mediations as prescribed and keep follow-up appointments. They are stable for discharge to outpatient level of care. Again, Jim's presentation was more consistent with OCD exacerbation +/- hypomania vs. activation +/- akathisia on higher dose of Lybalvi rather than a psychotic episode. He functioned well within the therapeutic milieu when his olanzapine component was decreased. Ideally Klonopin will be tapered to a minimally effective dose over time by his outpatient provider as short term use is desirable. Lybalvi is non-formulary and since it is unclear if the olanzapine dose will remain at 10 mg, a new rx of Lybalvi was not sent as unlikely to be covered by insurance so close to his last fill. Transition of Care Transition Of Care Record: was reviewed with the patient Advance Directives Advance Directives Information Provided: Yes Advance Directives: No Mental Health Advance Directive: No Advance Directives on File: No Living Will: No Power of Engineering Aide: No Advance Directives Reason:: Declines as Mental Health Visit. Suicide Risk Level Suicide Risk Level Comments: Suicide risk at discharge is deemed low as the patient is no longer requiring 24-hr monitoring, has a safety plan, and is free of suicidal ideation at discharge. The patient was never actively homicidal, he was experiencing intrussive thoughts that he experienced as hallucinations that started to tell him they would only go away if he acted on them (obsessional), these created marked anxiety for him. He was free of these thoughts following the medication changes and they did not return on interaction with family during in person visiting. His parents are very aware of these thoughts, were comfortable transporting him, and he lives at [facility] apartment. Risk Factors Assessment Male: Yes : Yes Do You Have Access To A Gun?: No Mental Health Diagnoses: Yes Previous Attempt: Yes Previous Psychiatric Hospitalization: Yes Protective Factors Assessment : No Stable Relationships: Yes Supportive Family: Yes Good Rapport with Provider: Yes Tobacco Cessation at Discharge Tobacco Cessation Medication Prescribed at Discharge: Not Applicable/Non-Smoker Total Time Total Time Spent: Greater Than 30 Minutes (70) Total Time Includes: Examination of the patient, Discharge Planning and Medication Reconciliation Discharge Data Consultations 06/07/23 17:23 ED Decision to Admit Stat Lab Results 06/07/23 06/07/23 06/07/23 13:31 13:31 13:55 WBC 13.11 H RBC 4.56 Hgb 12.7 Hct 38.7 MCV 84.9 MCH 27.9 MCHC 32.8 RDW Std Deviation 44.0 RDW Coeff of Padmini 14.3 Plt Count 514 H MPV 10.2 Immature Gran % (Auto) 0.3 Neut % (Auto) 54.0 Lymph % (Auto) 39.1 [place] % (Auto) 3.8 Eos % (Auto) 2.4 Baso % (Auto) 0.4 Neut # (Auto) 7.08 H Lymph # (Auto) 5.13 H [place] # (Auto) 0.50 Eos # (Auto) 0.31 Baso # (Auto) 0.05 Immature Gran # (Auto) 0.04 Sodium Potassium Chloride Carbon Dioxide Anion Gap BUN Creatinine Est Cr Clr Drug Dosing Est GFR ( Amer) Est GFR (Non-Af Amer) BUN/Creatinine Ratio Glucose Fasting Glucose Calcium Total Bilirubin AST ALT Alkaline Phosphatase Total Protein Albumin Globulin Albumin/Globulin Ratio Triglycerides Cholesterol LDL Cholesterol, Calc VLDL Cholesterol, Calc HDL Cholesterol Cholesterol/HDL Ratio TSH Free T4 HCG, Qual Urine Color Yellow Urine Appearance Clear Urine pH 7.5 Ur Specific Driver 1.004 Urine Protein Negative Urine Glucose (UA) Negative Urine Ketones Negative Urine Blood Negative Urine Nitrite Negative Urine Bilirubin Negative Urine Urobilinogen Negative Ur Leukocyte Esterase 1+ H Urine WBC (Auto) 0 Urine RBC (Auto) 0-4 U Hyaline Cast (Auto) 0 U Epithel Cells (Auto) 5-10 H Urine Bacteria (Auto) Negative Salicylates Urine Opiates Screen Neg Ur Methadone, Qual Neg Acetaminophen Urine Barbiturates Neg Ur Phencyclidine (PCP) Neg U Amphetamin/Meth Scrn Neg MDMA (Ecstasy) Screen Neg U Benzodiazepines Scrn Neg [place] Ur Cocaine Metabolite Neg U Marijuana (THC) Screen Neg Ethyl Alcohol mg/dL SARS-CoV-2, RNA, NAAT 06/07/23 06/07/23 06/07/23 13:55 13:55 13:55 WBC RBC Hgb Hct MCV MCH MCHC RDW Std Deviation RDW Coeff of Padmini Plt Count MPV Immature Gran % (Auto) Neut % (Auto) Lymph % (Auto) [place] % (Auto) Eos % (Auto) Baso % (Auto) Neut # (Auto) Lymph # (Auto) [place] # (Auto) Eos # (Auto) Baso # (Auto) Immature Gran # (Auto) Sodium 139 Potassium 3.8 Chloride 110 H Carbon Dioxide 22 Anion Gap 7 BUN 9 Creatinine 0.90 Est Cr Clr Drug Dosing 114.4 Est GFR ( Amer) 102.3 Est GFR (Non-Af Amer) 88.2 BUN/Creatinine Ratio 10.0 Glucose 102 H Fasting Glucose Calcium 9.7 Total Bilirubin 0.2 AST 37 ALT 73 H Alkaline Phosphatase 154 H Total Protein 7.8 Albumin 4.5 Globulin 3.3 Albumin/Globulin Ratio 1.4 Triglycerides Cholesterol LDL Cholesterol, Calc VLDL Cholesterol, Calc HDL Cholesterol Cholesterol/HDL Ratio TSH 5.379 H Free T4 0.58 L HCG, Qual Urine Color Urine Appearance Urine pH Ur Specific Driver Urine Protein Urine Glucose (UA) Urine Ketones Urine Blood Urine Nitrite Urine Bilirubin Urine Urobilinogen Ur Leukocyte Esterase Urine WBC (Auto) Urine RBC (Auto) U Hyaline Cast (Auto) U Epithel Cells (Auto) Urine Bacteria (Auto) Salicylates < 3.0 L Urine Opiates Screen Ur Methadone, Qual Acetaminophen < 3 L Urine Barbiturates Ur Phencyclidine (PCP) U Amphetamin/Meth Scrn MDMA (Ecstasy) Screen U Benzodiazepines Scrn [place] 1.2 Ur Cocaine Metabolite U Marijuana (THC) Screen Ethyl Alcohol mg/dL < 10.0 SARS-CoV-2, RNA, NAAT 06/07/23 06/07/23 06/08/23 13:55 Unknown 08:01 WBC RBC Hgb Hct MCV MCH MCHC RDW Std Deviation RDW Coeff of Padmini Plt Count MPV Immature Gran % (Auto) Neut % (Auto) Lymph % (Auto) [place] % (Auto) Eos % (Auto) Baso % (Auto) Neut # (Auto) Lymph # (Auto) [place] # (Auto) Eos # (Auto) Baso # (Auto) Immature Gran # (Auto) Sodium Potassium Chloride Carbon Dioxide Anion Gap BUN Creatinine Est Cr Clr Drug Dosing Est GFR ( Amer) Est GFR (Non-Af Amer) BUN/Creatinine Ratio Glucose Fasting Glucose Calcium Total Bilirubin AST ALT Alkaline Phosphatase Total Protein Albumin Globulin Albumin/Globulin Ratio Triglycerides Cholesterol LDL Cholesterol, Calc VLDL Cholesterol, Calc HDL Cholesterol Cholesterol/HDL Ratio TSH Free T4 HCG, Qual Negative Urine Color Urine Appearance Urine pH Ur Specific Driver Urine Protein Urine Glucose (UA) Urine Ketones Urine Blood Urine Nitrite Urine Bilirubin Urine Urobilinogen Ur Leukocyte Esterase Urine WBC (Auto) Urine RBC (Auto) U Hyaline Cast (Auto) U Epithel Cells (Auto) Urine Bacteria (Auto) Salicylates Urine Opiates Screen Ur Methadone, Qual Acetaminophen Urine Barbiturates Ur Phencyclidine (PCP) U Amphetamin/Meth Scrn MDMA (Ecstasy) Screen U Benzodiazepines Scrn [place] 0.9 Ur Cocaine Metabolite U Marijuana (THC) Screen Ethyl Alcohol mg/dL SARS-CoV-2, RNA, NAAT NEGATIVE 06/08/23 08:01 WBC RBC Hgb Hct MCV MCH MCHC RDW Std Deviation RDW Coeff of Padmini Plt Count MPV Immature Gran % (Auto) Neut % (Auto) Lymph % (Auto) [place] % (Auto) Eos % (Auto) Baso % (Auto) Neut # (Auto) Lymph # (Auto) [place] # (Auto) Eos # (Auto) Baso # (Auto) Immature Gran # (Auto) Sodium Potassium Chloride Carbon Dioxide Anion Gap BUN Creatinine Est Cr Clr Drug Dosing Est GFR ( Amer) Est GFR (Non-Af Amer) BUN/Creatinine Ratio Glucose Fasting Glucose 107 H Calcium Total Bilirubin AST ALT Alkaline Phosphatase Total Protein Albumin Globulin Albumin/Globulin Ratio Triglycerides 111 Cholesterol 173 LDL Cholesterol, Calc 120 VLDL Cholesterol, Calc 22 HDL Cholesterol 31 Cholesterol/HDL Ratio 5.6 H TSH Free T4 HCG, Qual Urine Color Urine Appearance Urine pH Ur Specific Driver Urine Protein Urine Glucose (UA) Urine Ketones Urine Blood Urine Nitrite Urine Bilirubin Urine Urobilinogen Ur Leukocyte Esterase Urine WBC (Auto) Urine RBC (Auto) U Hyaline Cast (Auto) U Epithel Cells (Auto) Urine Bacteria (Auto) Salicylates Urine Opiates Screen Ur Methadone, Qual Acetaminophen Urine Barbiturates Ur Phencyclidine (PCP) U Amphetamin/Meth Scrn MDMA (Ecstasy) Screen U Benzodiazepines Scrn [place] Ur Cocaine Metabolite U Marijuana (THC) Screen Ethyl Alcohol mg/dL SARS-CoV-2, RNA, NAAT Hospital Course (1) Schizophrenia: (2) Obsessive compulsive disorder: (3) ADHD (attention deficit hyperactivity disorder): Plan 06/10/23: continue current meds and tx plan, in person visit with mother to see interactions 06/09/23: Full medication review with patient and mother. Will decrease Lybalvi as a trial basis as suspect side effect. As non-formulary will offer Zyprexa 10 mg this hs and cover with benzodiazepine for symptomatic relief. As minimal response to Ativan 1 mg, opted for Klonopin 1 mg possibly TID dosing if needed. Patient received first 2 doses relatively close together and did sleep for significant period so will adjust to 0.5 mg TID. Risks/benefits/alternatives reviewed re: Klonopin and controlled substance. Patient does not drink alcohol. 06/08/23: The patient was admitted to the [facility] on q15 min checks (behavioral with suicide precautions) for safety. The patient will participate in group, recreational, and milieu therapies and will be offered additional individual and family sessions as clinically appropriate. Patient assents to continue current medications pending full review of risks/benefits with guardian. Mental Health & Subst Abuse Tx Psychiatrist Name of Psychiatrist: Sergio Jimenez Psychiatrist's Date Of Appointment With Psychiatric Provider: 06/28/2023 Time of Appointment with Psychiatrist: 2pm Psychiatric Appointment Comment: [address] [place] [address] Psychiatrist Release of Information: Obtained, Reviewed and Signed Therapist Name of Therapist: Dr. Josue Felix Date of Therapist Appointment: 06/11/2023 Time of Therapist Appointment: 2:20 pm Therapy Appointment Comment: [address], [place] [address] Therapist Release of Information: Obtained, Reviewed and Signed Post Discharge Appointments Primary Care Physician Name Of Family Doctor/PCP: Allyson Dexter Primary Care Time of Appointment with PCP: follow up as needed Provider Appointment Comment: [address] [place] [address] Primary Care Release of Information: Obtained, Reviewed and Signed Smoking Cessation Counseling Tobacco Cessation Medication Prescribed at Discharge: Not Applicable/Non-Smoker Contact Information Discharge Discharge [address]: [address] [place] [address] Discharge Plan Discharge Items Patient Disposition: Home - Self-Care Reason For Visit: SCHIZOPHRENIA Discharge Diagnosis: same Activity: Resume your previous activity Non-emergency contact: Primary Care Provider, Psychiatrist, Therapist and Truss Puller Helper Call non-emergency contact if: you have any medication questions and your symptoms worsen Follow-up/Referrals: Thanh Dexter MD [Primary Care Provider] - Diet: Regular Addtl Attending Provider Instructions: SPECIAL CARE INSTRUCTIONS: 1. Follow through with your scheduled aftercare appointments. If unable to keep an appointment, please call to reschedule. 2. Take your medication only as prescribed. Medication should not be changed or stopped without the approval of your doctor. In the event of worsening symptoms or concerns about side effects, contact your doctor immediately. 3. Utilize new healthy coping skills, anger management skills, and stress management skills learned during your hospitalization. Journal feelings and process them with a support person. Identify stressors or situations that may result in relapse, deterioration or inappropriate behaviors and develop a plan to deal with those issues. 4. If your coping skills are ineffective and you are in crisis, contact your outpatient providers for direction. If unable to reach your providers, please call the [facility] CRISIS LINE AT , go to the [facility] walk-in center at [address] [place] [address] [facility], or go to the closest Emergency Room. 5. Avoid alcohol and un-prescribed drugs. 6. You have been provided with the Mental Health Advance Directives Pamphlet for your review. 7. Your condition is stable for discharge to outpatient level of care, but recovery is an ongoing process. Ifthoughts to harm yourself or others return, follow the safety plan developed during your stay. Planning for a safe return home includes securing weapons. Our treatment team recommends weaponsbe removed from the home until your outpatient provider reassesses your progress. In rare cases where the items themselvescannot be removed, guns and ammunitionshould be secured separatelyand keys stored by a reliable personoutside of the home. If you were admitted on an involuntary commitment, the police or other legal authorities may be involved in this process. AFTERCARE APPOINTMENTS: * Please call your insurance company prior to your scheduled appointment to confirm your aftercare providers are covered. Take your insurance information to your appointments. WHO TO CALL AND WHEN: Medical Emergencies: For questions or emergencies related to your hospital stay, please contact the Inpatient Behavioral Health Unit at [phone]. A department sales manager is on-call 22/03 for the Behavioral Health Unit for emergencies At any time you feel your situation is an emergency, you may also call 911 immediately. Pending Studies at Discharge: No Stand-Alone Forms: My [facility] Medications and DC Order Prescriptions: New clonazepam 1 mg Tablet 1 mg PO TID Qty: 14 1RF olanzapine 10 mg Tablet 10 mg PO HS Qty: 30 0RF Continued clomipramine 75 mg capsule See Rx Instructions .ROUTE .COMPLEX Rx Instructions: 75 mg orally at 4pm with 25mg dose clomipramine 25 mg capsule See Rx Instructions .ROUTE .COMPLEX Rx Instructions: 25 mg orally at 4pm with 75mg dose medroxyprogesterone 150 mg/mL syringe 150 mg IM .COMPLEX Qty: 1 0RF Rx Instructions: 150 mg IM : Inject 1 ml every [address] office[address] multivitamin [Tab-A-Tomasz] Tablet 1 tab PO QAM benztropine 1 mg Tablet 1 mg PO BID lactase [Lactaid] 3,000 unit Tablet 3,000 unit PO AC PRN (Reason: Lactose Intolerance) fluticasone propionate [Flonase Allergy Relief] 50 mcg/actuation [place],Suspension 1 spray INTRANASAL HS lithium carbonate 450 mg tablet extended release 900 mg PO BID testosterone gel 1.62 % topical DAILY Rx Instructions: apply 3 pumps to shoulder on skin in the morning clindamycin-benzoyl peroxide [Neuac] 1.2 %(1 % base) -5 % gel 1 ea TOPICAL DAILY pimozide 1 mg tablet 1 mg PO BID Qty: 1 0RF Rx Instructions: BID means morning and 4 pm Changed guanfacine 1 mg tablet See Rx Instructions .ROUTE .COMPLEX Qty: 1 0RF Rx Instructions: 1 mg ;pt takes in the morning and at 4pm daily Discontinued Lybalvi 20-10 mg Tablet 1 tab PO HS Discharge Orders: Discharge Order (Routine); Ordered 06/11/23 Ordered By: Jayde Null Admission Data Admit Date/Time: 06/07/23 17:07 Attending Provider: Jayde Null Admit Provider: Jayde Null Primary Care Provider: Thanh Dexter Other Providers: Jayde Null Other Interventions: Discharge Summary Assessment (RN) Last Done: 06/11/23 12:53 PSY Interdisciplinary Discharge Planning Last Done: 06/11/23 13:00 Coding Level of Care Code 73427 D/C day mgmt > 30 min Diagnoses Schizophrenia F20.9 Obsessive compulsive disorder F42.9 ADHD (attention deficit hyperactivity disorder) F90.9
--- NOTE | 2023-06-12 06:23 | Communication Note ---
Date of Service: June 12, 2023 while reviewing the patient's discharge summary, I realized that I did not dispense enough medication at discharge to cover until his outpatient appointm ent at [facility] given TID dosing. A new rx for 40 tabs was issued to replace the refill on the original rx. Per the PDMP, patient already picked up the rx. A pharmacy note was included on the new electronic script and I LM on the voicemail for the pharmacy and asked then notify patient when it can be dispensed. As pharmacy is currently closed will also notify nursing.
--- NOTE | 2023-06-12 12:41 | Communication Note ---
Date of Service: June 12, 2023 Spoke with patient's father Adolph, updated him that new prescription of Klonopin was sent to pharmacy and could be picked up once Jim's current prescription runs out. He understood and expressed appreciation for the notification. He is aware of upcoming date and time for [facility] appointment.
== END 2023-06-11 13:45 | disposition home or self-care (01) | DRG 885 ==
LOC: ED 13:20 → 3S 17:07